=== PATIENT | female | born 1945 | race Caucasian/White ===

== ENCOUNTER 2019-12-18 16:38 | Emergency (ER) | payer OTHER ==
--- NOTE | 2019-12-18 17:25 | RAD REPORT ---
EXAM DESCRIPTION: CT - CTHCSPWOC - 12/18/2019 4:45 pm CLINICAL HISTORY: Trauma, head and neck injury. fall, head injury COMPARISON: No comparisons TECHNIQUE: Axial 5 mm thick images of the head were obtained. Axial 2 mm thick images of the cervical spine were obtained with sagittal and coronal reconstruction images generated and reviewed. All CT scans are performed using dose optimization technique as appropriate and may include automated exposure control or mA/KV adjustment according to patient size. FINDINGS: CT HEAD WITHOUT CONTRAST: No acute hemorrhage, hydrocephalus or extra-axial collection is identified.Advanced generalized brain atrophy is present with advanced periventricular and deep white matter chronic microvascular ischemi c changes.No areas of brain edema or midline shift. The paranasal sinuses and mastoids are clear.The calvarium is intact. CT CERVICAL SPINE WITHOUT CONTRAST: No fracture or subluxation.Midcervical degenerative spondylosis.No prevertebral soft tissues swelling is identified. IMPRESSION: No acute intracranial or cervical spine findings.
--- NOTE | 2019-12-18 17:57 | EDPHYS ---
Physician Documentation [facility] Name: Vaishali Chavarria Age: 74 yrs Sex: Female : 1945 Arrival Date: 12/18/2019 Time: 16:39 Bed 7 Private MD: ED Physician Bravo Melton HPI: 12/17 17:55 This 74 yrs old Female presents to ER via EMS with complaints of Fall Injury. snw 17:55 Details of fall: The patient fell from seated position, out of a chair. Onset: The snw symptoms/episode began/occurred suddenly, just prior to arrival. Associated injuries: The patient sustained injury to the head. Severity of symptoms: At their worst the symptoms were moderate. It is unknown whether or not the patient has had similar symptoms in the past. It is unknown whether or not the patient has recently seen a physician. pt without complaint. [place] sent pt to be evaluated 2nd to use of blood thinners. Historical: - Allergies: 17:30 Iodine; ls4 17:30 PENICILLINS; ls4 17:30 Shellfish Containing Products; ls4 - Immunization history: Last tetanus immunization: unknown. - Social history:: Smoking status: Patient/guardian denies using tobacco. ROS: 17:55 Constitutional: Negative for fever, chills, and weight loss, Eyes: Negative for injury, snw pain, redness, and discharge, ENT: Negative for injury, pain, and discharge, Neck: Negative for injury, pain, and swelling, Cardiovascular: Negative for chest pain, palpitations, and edema, Respiratory: Negative for shortness of breath, cough, wheezing, and pleuritic chest pain, Abdomen/GI: Negative for abdominal pain, nausea, vomiting, diarrhea, and constipation, Back: Negative for injury and pain, : Negative for injury, bleeding, discharge, and swelling, MS/Extremity: Negative for injury and deformity, Skin: Negative for injury, rash, and discoloration, Neuro: Negative for headache, weakness, numbness, tingling, and seizure, Psych: Negative for depression, anxiety, suicide ideation, homicidal ideation, and hallucinations. Exam: 17:55 Constitutional: This is a well developed, well nourished patient who is awake, alert, snw and in no acute distress. Head/Face: Normocephalic, atraumatic. Eyes: Pupils equal round and reactive to light, extra-ocular motions intact. Lids and lashes normal. Conjunctiva and sclera are non-icteric and not injected. Cornea within normal limits. Periorbital areas with no swelling, redness, or edema. ENT: Nares patent. No nasal discharge, no septal abnormalities noted. Tympanic membranes are normal and external auditory canals are clear. Oropharynx with no redness, swelling, or masses, exudates, or evidence of obstruction, uvula midline. Mucous membranes moist. Neck: Trachea midline, no thyromegaly or masses palpated, and no cervical lymphadenopathy. Supple, full range of motion without nuchal rigidity, or vertebral point tenderness. No Meningismus. Chest/axilla: Normal chest wall appearance and motion. Nontender with no deformity. No lesions are appreciated. Cardiovascular: Regular rate and rhythm with a normal S1 and S2. No gallops, murmurs, or rubs. Normal PMI, no JVD. No pulse deficits. Respiratory: Lungs have equal breath sounds bilaterally, clear to auscultation and percussion. No rales, rhonchi or wheezes noted. No increased work of breathing, no retractions or nasal flaring. Abdomen/GI: Soft, non-tender, with normal bowel sounds. No distension or tympany. No guarding or rebound. No evidence of tenderness throughout. Back: No spinal tenderness. No costovertebral tenderness. Full range of motion. Skin: Warm, dry with normal turgor. Normal color with no rashes, no lesions, and no evidence of cellulitis. MS/ Extremity: Pulses equal, no cyanosis. Neurovascular intact. Full, normal range of motion. Neuro: Awake and alert, GCS 15, oriented to person, place, time, and situation. Cranial nerves II-XII grossly intact. Motor strength 5/5 in all extremities. Sensory grossly intact. Cerebellar exam normal. Normal gait. Psych: Awake, alert, with orientation to person, place and time. Behavior, mood, and affect are within normal limits. Vital Signs: 16:46 BP 133 / 91; Pulse 76; Resp 14; Temp 98.5; Pulse Ox 99% on R/A; Weight 72.57 kg; Pain ls4 0/10; 17:40 BP 147 / 100; Pulse 71; Resp 14; Pulse Ox 99% on R/A; Pain 0/10; ls4 19:42 BP 151 / 84; Pulse 85; Resp 16; Pulse Ox 94% on R/A; rv Wilton Coma Score: 16:46 Eye Response: spontaneous(4). Verbal Response: oriented(5). Motor Response: obeys ls4 commands(6). Total: 15. Trauma Score (Adult): 16:46 Eye Response: spontaneous(1); Verbal Response: oriented(1); Motor Response: obeys ls4 commands(2); Systolic BP: > 89 mm Hg(4); Respiratory Rate: 10 to 29 per min(4); Wilton Score: 15; Trauma Score: 12 MDM: 16:40 Patient medically screened. rn 17:57 Data reviewed: vital signs, nurses notes. Data interpreted: Pulse oximetry: on room air snw is 99 %. Interpretation: normal. Counseling: I had a detailed discussion with the patient and/or guardian regarding: the historical points, exam findings, and any diagnostic results supporting the discharge/admit diagnosis, radiology results, to return to the emergency department if symptoms worsen or persist or if there are any questions or concerns that arise at home. 12/17 16:41 Order name: CT Head C Spine; Complete Time: 17:36 rn Administered Medications: No medications were administered Disposition: 12/18/19 17:54 Discharged to Home. Impression: Fall on same level, unspecified, Unspecified injury of head. - Condition is Stable. - Discharge Instructions: Head Injury, Adult, Fall Prevention in the Home. - Medication Reconciliation Form, Thank You Letter, Antibiotic Education, Prescription Opioid Use form. - Follow up: Emergency Department; When: As needed; Reason: Worsening of condition. Follow up: Private Physician; When: 2 - 3 days; Reason: Recheck today's complaints, Continuance of care, Re-evaluation by your physician. Addendum: 12/21/2019 18:59 Co-signature as Attending Physician, Bravo Melton MD. r n Signatures: Dispatcher [employer] EDMS Grace Maya, SCLEROSCOPE TESTER-C SCLEROSCOPE TESTER-Csnw Bravo Melton MD MD rn Vicente, Ronaldo, RN RN Archana Marroquin RN RN ls4 Corrections: (The following items were deleted from the chart) 12/17 19:42 17:54 12/18/2019 17:54 Discharged to Home. Impression: Fall on same level, unspecified; rv Unspecified injury of head. Condition is Stable. Forms are Medication Reconciliation Form, Thank You Letter, Antibiotic Education, Prescription Opioid Use. Follow up: Emergency Department; When: As needed; Reason: Worsening of condition. Follow up: Private Physician; When: 2 - 3 days; Reason: Recheck today's complaints, Continuance of care, Re-evaluation by your physician. snw
--- NOTE | 2019-12-18 17:57 | ER ---
Nurse's Notes [facility] Name: Vaishali Chavarria Age: 74 yrs Sex: Female : 1945 Arrival Date: 12/18/2019 Time: 16:39 Bed 7 Private MD: Diagnosis: Fall on same level, unspecified;Unspecified injury of head Presentation: 12/17 16:40 Chief complaint: EMS states: PT FROM [facility]. STAFF STATES PT FELL AND ls4 HIT THE RIGHT SIDE OF HER HEAD. STAFF STATES SHE IS ON BLOOD THINNERS. PT DENIES PAIN OR COMPLAINTS. IS AWAKE ALERT AND ORIENTED X 3. Care prior to arrival: None. Mechanism of Injury: No Mechanism of Injury. Trauma event details: Injury occurred in the [facility], Injury occurred: in an institution. Injury occurred: December 18, 2019 Injury occurred at: 16:00. 16:40 Acuity: KRISHNA 2 ls4 16:40 Method Of Arrival: EMS: [facility] ls4 16:40 Coronavirus screen: Patient denies fever greater than 100.4F, cough, shortness of ls4 breath, or difficulty breathing. Proceed with normal triage process. Ebola Screen: No symptoms or risks identified at this time. 16:40 Initial Sepsis Screen: Does the patient meet any 2 criteria? Yes Does the patient have ls4 a suspected source of infection? No. Patient's initial sepsis screen is negative. Risk Assessment: Do you want to hurt yourself or someone else? Patient reports no desire to harm self or others. 18:05 Activity prior to arrival: None. ls4 Trauma Activation: Not Applicable Physician: ED Physician; Name: ; Notified At: ; Arrived At: Physician: General Surgeon; Name: ; Notified At: ; Arrived At: Physician: Radiology; Name: ; Notified At: ; Arrived At: Physician: Respiratory; Name: ; Notified At: ; Arrived At: Physician: Lab; Name: ; Notified At: ; Arrived At: Historical: - Allergies: 17:30 Iodine; ls4 17:30 PENICILLINS; ls4 17:30 Shellfish Containing Products; ls4 - Immunization history: Last tetanus immunization: unknown. - Social history:: Smoking status: Patient/guardian denies using tobacco. Screenin:40 Nutritional screening: No deficits noted. Fall Risk Total Hudson Fall Scale indicates ls4 High Risk Score (45 or more points). Fall prevention measures have been instituted. Side Rails Up X 2 Placed Close to Nursing Station Frequent Obs/Assessments Occuring As available patient and family educated on Fall Prevention Program and Strategies. 16:46 Abuse screen: Denies threats or abuse. Denies injuries from another. Tuberculosis ls4 screening: No symptoms or risk factors identified. Primary Survey: 16:40 NO uncontrolled hemorrhage observed. A: Airway: patent. Breathing/Chest: Respiratory ls4 pattern: regular, Respiratory effort: spontaneous, unlabored, Breath sounds: clear, bilaterally. Chest inspection: symmetrical rise and fall of the chest. Circulation:. Disability Alert. Exposure/Environment: All clothing and personal items were removed. Forensic evidence collection is not deemed to be indicated at this time. Items placed in patient belonging bag. There is no evidence of uncontrolled external bleeding. No obvious injuries are noted at this time. A warming method has been applied: A warm blanket has been provided to the patient. Reassessment Airway Airway Patent Breathing/Chest Respiratory pattern Regular Respiratory effort Spontaneous Unlabored Breath sounds Clear Circulation Heart tones Present Pulses Palpable Color [place] Temperature Warm Disability Alert. Secondary Survey: 16:46 HEENT: No deficits noted. Gastrointestinal: No deficits noted. : No deficits noted. ls4 Musculoskeletal: No deficits noted. Injury Description: NO VISIBLE INJURY. Assessment: 16:40 General: Appears in no apparent distress. comfortable, Behavior is calm, cooperative. ls4 Pain: Denies pain. 17:40 Reassessment: Patient appears in no apparent distress at this time. Patient and/or ls4 family updated on plan of care and expected duration. Pain level reassessed. Patient is alert, oriented x 3, equal unlabored respirations, skin warm/dry/pink. 19:33 Reassessment: [facility] called. REPORT GIVEN TO ROSETTA. ROSETTA STATES ls4 HE WILL CALL TRANSPORT. 19:35 Reassessment: [facility] CALLED. ROSETTA STATES HE WILL CALL TRANSPORT. ls4 19:40 Reassessment: PATIENT WAS ABLE TO GET UP AND TRANSFER FROM BED TO WHEELCHAIR. rv DISCHARGED VIA WHEELCHAIR, TOOK BY [facility] PERSONNEL. Vital Signs: 16:46 BP 133 / 91; Pulse 76; Resp 14; Temp 98.5; Pulse Ox 99% on R/A; Weight 72.57 kg; Pain ls4 0/10; 17:40 BP 147 / 100; Pulse 71; Resp 14; Pulse Ox 99% on R/A; Pain 0/10; ls4 19:42 BP 151 / 84; Pulse 85; Resp 16; Pulse Ox 94% on R/A; rv Rj Coma Score: 16:46 Eye Response: spontaneous(4). Verbal Response: oriented(5). Motor Response: obeys ls4 commands(6). Total: 15. Trauma Score (Adult): 16:46 Eye Response: spontaneous(1); Verbal Response: oriented(1); Motor Response: obeys ls4 commands(2); Systolic BP: > 89 mm Hg(4); Respiratory Rate: 10 to 29 per min(4); Rj Score: 15; Trauma Score: 12 ED Course: 16:39 Patient arrived in ED. jl7 16:40 Archana Duffy, RN is Primary Nurse. ls4 16:40 rBavo Melton MD is Attending Physician. rn 16:44 Triage completed. ls4 16:46 Patient has correct armband on for positive identification. Bed in low position. Call ls4 light in reach. Side rails up X 1. 16:46 Arm band placed on. ls4 16:46 Patient maintains SpO2 saturation greater than 95% on room air. ls4 16:46 Thermoregulation: warm blanket given to patient. ls4 16:47 CT Head C Spine In Process Unspecified. EDMS 16:52 [facility]C [facility] rn 17:25 No provider procedures requiring assistance completed. Patient did not have IV access ls4 during this emergency room visit. Administered Medications: No medications were administered Intake: 16:46 PO: 0ml; Total: 0ml. ls4 Output: 16:46 Urine: 0ml; Total: 0ml. ls4 Outcome: 17:54 Discharge ordered by . snw 19:41 Discharged to home via wheelchair, WITH [facility]. rv 19:41 Condition: good 19:41 Discharge instructions given to halfway, Instructed on discharge instructions, follow up and referral plans. Demonstrated understanding of instructions, follow-up care. 19:42 Patient left the ED. rv Signatures: Dispatcher [employer] EDND Grace Maya FNP-C GRADUATE ASSISTANT ATHLETIC TRAINER-Csnw Bravo Melton MD MD rn Leal, Jahala, RN RN jl7 Clarence Romero, RN RN rv Clive, Archana, RN RN ls4
[2019-12-18 19:57] VITALS: TEMP 98.5
[2019-12-18 20:00] VITALS: BP 151/84; O2SAT 94
== END 2019-12-18 19:42 | disposition home or self-care (01) ==
LOC: ER 16:38
DX: S09.90XA Unspecified injury of head, initial encounter (principal); W07.XXXA Fall from chair, initial encounter; Y93.9 Activity, unspecified; Y92.9 Unspecified place or not applicable; Z88.0 Allergy status to penicillin; Z91.013 Allergy to seafood; Z91.048 Other nonmedicinal substance allergy status
CPT/HCPCS: 70450; 72125; 99284

== ENCOUNTER 2021-05-22 05:53 | Inpatient (IN) | payer OTHER ==
--- OUTSIDE RECORDS SUMMARY | 2021-05-22 05:57 | XMS REPORT | Continuity of Care Document ---
:1945 Author Organization [facility] t Address [address] [place] [address] Care Team Providers Name Role Phone Unavailable Unavailable Unavailable Payers Payer Name Policy Type Policy Number Effective Date Expiration Date S ource Problems This patient has no known problems. Allergies, Adverse Reactions, Alerts Allergy Allergy Status Severity Reaction(s) Onset Inactive Treating Comm ents Source Name Type Date Date Clinician No Known DA Active U [facility] Allergie 01-01 Clear s 00:00: Galindo 00 [facility] Medications This patient has no known medications. Procedures This patient has no known procedures. Results Test Description Test Time Test Comments Results Result Comments Source TROPONIN-I 2019-08-04 16:48:00 Test Item Value Reference Range Interpretation Comme nts TROPONIN-I (test code = TROPI) <0.02 NG/ML 0.00-0.06 N REFERENCE RANGE TROPONIN I HEALTHY INDIVID UALS: <0.06 ng/mL R/O ISCHE ANATOLY: 0.07 - 0.60 ng/mL CUT- OFF RANGE FOR AMI: 0.60 - 1. 5 ng/mL [id number] 13:39:00 Test Item Value Reference Range Interpretation Comments TROPONIN-I (test <0.02 NG/ML 0.00-0.06 N REFERENCE R GISELA code = TROPI) TROPONIN I HEA LTHY INDIVIDUALS: < 0.06 ng/mL R/O ISCHE ANATOLY: 0.07 - 0.60 ng/ mL CUT-OFF RANGE F OR AMI: 0.60 - 1.5 ng/m L URINALYSIS [id number] 10:00:00 Test Item Value Reference Range Interpretation Comments UA COLOR (test code = LT YELLOW COLU) UA APPEARANCE (test code CLEAR = APPU) UA GLUCOSE DIPSTICK (test NORMAL mg/dl NORMAL code = DGLUU) UA BILIRUBIN DIPSTICK NEGATIVE mg/dL NEGATIVE (test code = BILU) UA KETONE DIPSTICK (test NEGATIVE mg/dl NEGATIVE code = KETU) UA SPECIFIC GRAVITY (test 1.010 1.000-1.030 code = SGU) UA BLOOD DIPSTICK (test 25 Carmelo/micL Carmelo/micL NEGATIVE A code = CASSI) UA PH DIPSTICK (test code 6.0 5.0-9.0 = BELLA) UA PROTEIN DIPSTICK (test NEGATIVE mg/dl NEGATIVE code = PROU) UA UROBILINIOGEN DIPSTICK NORMAL mg/dl NORMAL (test code = URO) UA NITRITE DIPSTICK (test POSITIVE NEGATIVE A code = LATASHA) UA LEUKOCYTE ESTERASE NEGATIVE Jose/micL NEGATIVE DIPSTICK (test code = LEUU) UA WBC (test code = WBCU) WBC/HPF NONE UA RBC (test code = RBCU) RBC/HPF 0-3 UA EPITHELIAL CELLS (test EPI/HPF 0-3 code = EPIU) UA BACTERIA (test code = NONE BACU) Specimen comments: Clean CatchURINALYSIS [id number] 10:00:00 Test Item Value Reference Range Interpretation Comments UA COLOR (test code = LT YELLOW COLU) UA APPEARANCE (test code CLEAR = APPU) UA GLUCOSE DIPSTICK (test NORMAL mg/dl NORMAL code = DGLUU) UA BILIRUBIN DIPSTICK NEGATIVE mg/dL NEGATIVE (test code = BILU) UA KETONE DIPSTICK (test NEGATIVE mg/dl NEGATIVE code = KETU) UA SPECIFIC GRAVITY (test 1.010 1.000-1.030 code = SGU) UA BLOOD DIPSTICK (test 25 Carmelo/micL Carmelo/micL NEGATIVE A code = CASSI) UA PH DIPSTICK (test code 6.0 5.0-9.0 = BELLA) UA PROTEIN DIPSTICK (test NEGATIVE mg/dl NEGATIVE code = PROU) UA UROBILINIOGEN DIPSTICK NORMAL mg/dl NORMAL (test code = URO) UA NITRITE DIPSTICK (test POSITIVE NEGATIVE A code = LATASHA) UA LEUKOCYTE ESTERASE NEGATIVE Jose/micL NEGATIVE DIPSTICK (test code = LEUU) UA WBC (test code = WBCU) 0-3 WBC/HPF NONE UA RBC (test code = RBCU) 0-2 RBC/HPF 0-3 UA EPITHELIAL CELLS (test 0-3 EPI/HPF 0-3 code = EPIU) UA BACTERIA (test code = TNTC NONE A BACU) Specimen comments: Clean CatchPROTHROMBIN [id number] 09:43:00 Test Item Value Reference Range Interpretation Comments PROTHROMBIN TIME 10.9 SECONDS 9.9-12.8 N PATIENT (test code = PTP) INTERNATIONAL NORMAL 0.9 0.89-1.14 N THE INR IS TO BE USED RATIO (test code = ONLY FOR MONITORING INR) ORAL ANTICOAGULANTTH ERAPY. THE FOLLOWING A RE SUGGESTED RANGE S FROM [facility] LEGE OF CHEST PHYSICIANS:ESTHER CATION INR VALUEPROPHYLAXI S OF VENOUS THROMBOS IS (ORTHOPEDIC MERLE KELLEY) 2.0 - 3.0PROP HYLAXIS OF VENOUS THROM BOSIS (OTHER THAN HIG H-RISK SURGERY) 2.0 - 3.0TRE ATMENT OF DEEP VEIN THROMBOSIS OR PULMONARY EMBOL ISM 2.0 - 3.0PREV ENTION OF SYSTEMIC EMB OLISM TISSUE HEART VA LVES 2.0 - 3.0 AC POARCH MYOCARDIAL INFA RCTION (TO PREVENT SYSTEMIC EMBOLI SM) 2.0 - 3.0 ACUTE MYOCARDIA L INFARCTION (TO PREVENT RECURRE NT INFARCT) 2.5 - 3.0 VALV ULAR HEART DISEASE 2.0 - 3.0 ATRIAL FIBRILATION 2.0 - 3.0BILEAFLET MECHANICAL VALV E IN AORTIC POSITION 2.0 - 3.0MECHAN ICAL PROSTHETIC VALV ES (HIGH RISK) 2.5 - 3.5PRESEN CE OF LUPUS ANTICOAGU LANT OR ANTIPHOSPHOLIP ID ANTIBODIES 2.5 - 3 .5 Specimen comments: .Is patient on anticoagulants? NTHROMBOPLASTIN TIME PARTIAL 2019-08-04 09:43:00 Test Item Value Reference Range Interpretation Comments THROMBOPLASTIN TIME 44.50 SECONDS 25.86-36.07 [facility] PARTIAL (test code = Therape utic Range - PTT) APTT of 55.8-85 .4 secondscorrelat es with plasma heparin concentration o f 0.2-0.4 u/mL Ne w range effective - Specimen comments: .Is patient on anticoagulants? NBASIC METABOLIC PANEL 2019-08-04 09:32:00 Test Item Value Reference Range Interpretation Comments SODIUM (test code = NA) 138 mmol/l 134.0-147.0 N POTASSIUM (test code = K) 4.0 mmol/L 3.6-5.2 N CHLORIDE (test code = CL) 105 mmol/l 98.0-107.0 N CARBON DIOXIDE (test code = CO2) 26.2 mmol/l 21.0-33.0 N ANION GAP (test code = GAP) 10.8 0-20 N GLUCOSE (test code = GLU) 87 mg/dl 70.0-110.0 N BLOOD UREA NITROGEN (test code = 16 mg/dl 7.0-18.0 N BUN) CREATININE (test code = CREAT) 0.60 mg/dL 0.60-1.30 N GFR NON BLACK (test code = 104 mL/min 70-80 H GFRNONBLACK) GFR BLACK (test code = GFRBLACK) 126 mL/min 85-97 H CALCIUM (test code = CA) 9.6 mg/dl 8.0-10.5 N Specimen comments: .[id number] 09:32:00 Test Item Value Reference Range Interpretation Comments TROPONIN-I (test <0.02 NG/ML 0.00-0.06 N REFERENCE R GISELA code = TROPI) TROPONIN I HEA LTHY INDIVIDUALS: < 0.06 ng/mL R/O ISCHE ANATOLY: 0.07 - 0.60 ng/ mL CUT-OFF RANGE F OR AMI: 0.60 - 1.5 ng/m L Specimen comments: .CBC W/AUTO [id number] 09:08:00 Test Item Value Reference Range Interpretation Comments WHITE BLOOD CELL (test code = 7.8 K/mm3 4.5-11.0 N WBC) RED BLOOD CELL (test code = 5.13 M/mm3 3.80-5.20 N RBC) HEMOGLOBIN (test code = HGB) 14.8 gm/dL 12.0-16.0 N HEMATOCRIT (test code = HCT) 46.6 % 36.0-48.0 N MEAN CELL VOLUME (test code = 90.8 UM3 82.0-99.0 N MCV) MEAN CELL HGB (test code = MCH) 28.8 UUG 25.5-32.5 N MEAN CELL HGB CONCETRATION 31.8 gm/dL 29.0-35.5 N (test code = MCHC) RED CELL DISTRIBUTION WIDTH 12.9 % 11.5-15.0 N (test code = RDW) RED CELL DISTRIBUTION WIDTH SD 42.9 fL 34.8-50.2 N (test code = RDW-SD) PLATELET COUNT (test code = 255 K/mm3 150-400 N PLT) MEAN PLATELET VOLUME (test code 10.6 fl 7.4-10.4 H = MPV) NEUTROPHIL % (test code = NT%) 77.3 % 49.0-76.0 H IMMATURE GRANULOCYTE % (test 0.3 % 0.0-0.4 N code = IG%) LYMPHOCYTE % (test code = LY%) 10.9 % 23.0-38.0 L MONOCYTE % (test code = MO%) 7.8 % 1.0-10.0 N EOSINOPHIL % (test code = EO%) 3.3 % 1.0-5.0 N BASOPHIL % (test code = BA%) 0.4 % 0.0-1.0 N NEUTROPHIL # (test code = NT#) 6.1 K/mm3 2.4-6.3 N IMMATURE GRANULOCYTE # (test 0.02 x10 3/uL 0.00-0.07 N code = IG#) LYMPHOCYTE # (test code = LY#) 0.9 K/mm3 1.2-4.0 L MONOCYTE # (test code = MO#) 0.6 K/mm3 0.0-0.6 N EOSINOPHIL # (test code = EO#) 0.3 K/MM3 0.0-0.7 N BASOPHIL # (test code = BA#) 0.0 K/mm3 0.0-0.2 N - CT C-SPINE W/O [id number] 08:20:00 FAX: Yanni Olmstead MD [phone] [place]: St: REG FAX: Elyssa Retana MD [phone] Name: YANI SPICER [facility] : 1945 Age/S: 73/F [address] [facility] [address] Unit: [id number] Loc: E.EXP [place], [place]: [place] [address] Acct: [id number] Dis Date: Status: REG ER PHONE #: [phone] Exam Date: 08/04/2019 0804 FAX #: [phone] Reason: Neck Pain EXAMS: CPT CODE: [id number] CT C-SPINE W/O CONT 08006 EXAM: CT CERVICAL SPINE WITHOUT CONTRAST LOCATION: C3 HISTORY: Neck Pain TECHNIQUE: Axial tomograms through the cervical spine were obtained without intravenous contrast. Sagittal and coronal reformatted images are provided. This exam was performed according [facility] departmental dose-optimization program, which includes automated exposure control, adjustment of the mA and/or kV according to patient size and/or use of iterative reconstruction technique. COMPARISON: None available time of interpretation. FINDINGS: Cervical alignment is maintained. No acute fracture or dislocation. The prevertebral soft tissues are within normal limits. The visualized soft tissues of the neck show no significant abnormalities. IMPRESSION: No acute osseous findings. at 0820 Reported and signed by: Thien Taylor M.D. CC: Yanni Levy MD; Elyssa Retana MD Technologist: ANGELLA PARRA Trnscrd Dt/Tm: 08/04/2019 (0820) [email or web address] Orig Print D/T: S: 08/04/2019 (0823 PAGE 1 Signed Report- CT HEAD/BRAIN W/O [id number] 08:18:00 FAX: Yanni Olmstead MD [phone] [place]: St: REG FAX: Elyssa Retana MD [phone] Name: YANI SPICER [facility] : 1945 Age/S: 73/F [address] [facility] [address] Unit: [id number] Loc: E.EXP [place], [place]: [place] [address] Acct: [id number] Dis Date: Status: REG ER PHONE #: [phone] Exam Date: 08/04/2019 0804 FAX #: [phone] Reason: Headache EXAMS: CPT CODE: [id number] CT HEAD/BRAIN W/O CONT 38831 EXAM: - CT HEAD/BRAIN W/O CONT LOCATION: C3 HISTORY: 73 years- year old Female with Headache TECHNIQUE: Computerized tomography images from the skull base to the vertex were obtained. Coronal and sagittal reformatted images are provided. This exam was performed according to our departmental dose-optimization program, which includes automated exposure control, adjustment of the mA and/or kV according to patient size and/or use of iterative reconstruction technique COMPARISON: None FINDINGS: Brain: The brain parenchymal architecture is unremarkable. There is moderate diffuse cer ebral atrophy and periventricular/subcortical white matter hypodensities that likely representsequelae of chronic microvascular ischemia. There is no evidence of an acute territorialinfarct. Hemorrhage: There is no CT evidence of acute intracranial hemorrhage. Mass/edema: There is no CT evidence of mass effect, midline shift, or parenchymal edema. Ventricles: There is no evidence of hydrocephalus. Bones: There is no evidence of acute displaced calvarial fracture. Sinuses: The visualized portions of the paranasal sinuses and mastoid air cells are free of significant opacification. Other/Soft Tissues: Unremarkable. IMPRESSION: 1. No CT evidence of acute intracranial abnormality. PAGE 1 Signed Report (CONTINUED) FAX: Yanni Olmstead MD [phone] [place]: St: REG FAX: Elyssa Retana MD [phone] Name: YANI SPICER [facility] : 1945ge/S: 73/F [address] [employer] Unit: [id number] Loc: E.EXP [place], [place]: [place] [address] Acct: [id number] Dis Date: Status: REG ER PHONE #: [phone] Exam Date: 08/04/2019 0804 FAX #: [phone] Reason:Headache EXAMS: CPT CODE: [id number] CT HEAD/BRAIN W/O CONT 77112 <Continued> at 0818 Reported and signed by: Thien Taylor M.D. CC: Yanni Levy MD; Elyssa Retana MD Technologist: ANGELLA PARRA Trnscrd Dt/Tm: 08/04/2019 (0818) [email or web address] Orig Print D/T: S: 08/04/2019 (0821 PAGE 2 Signed Report- XR CHEST 1 [id number] 08:06:00 FAX: Yanni Olmstead MD [phone] [place]: St: REG FAX: Guanaco Retana [phone] Name: YANI SPICER [facility] : 1945 Age/S: 73/[address] Unit #: [id number] Loc: E.EXP [place], [place]: [place] [address] Acct: [id number] Dis Date: Status: REG ER PHONE #: [phone] Exam Date: 08/04/2019803 FAX #: [phone] Reason: Chest Pain EXAMS: CPT CODE: [id number] XR CHEST 1 V 79659 EXAM: - XR CHEST 1 V LOCATION: C3 HISTORY: Chest Pain COMPARISON: Noneavailable time of interpretation. FINDINGS: Single view of the chest. No indwelling lines or tubes. No pneumothorax. The lungs are clear without significant effusions. The mediastinal contours are unremarkable/unchanged. No acute osseous findings are present. Old unhealed right rib fractures versus sequela of prior thoracostomy noted. IMPRESSION: No acute cardiopulmonary abnormality. at 0806 Reported and signed by: Thien Taylor M.D. CC: Yanni Levy MD; Elyssa Retana MD Technologist: NGOC ALEMAN; RAVIN HOLLAND Trnscrd Date/Time/By: 08/04/2019 (0806) : By: [email or web address] PAGE 1 Signed Report FAX: Yanni Olmstead MD [phone] [place]: St: REG FAX: Elyssa Retana MD [phone] Name: YANI SPICER [facility] : 1945 Age/S: 73/F [address] [facility] Unit #: [id number] Loc: E.EXP [place], [place]: [place] [address] Acct: [id number] Dis Date: Status: REG ER PHONE #: [phone] Exam Date: 08/04/2019 0804 FAX #: [phone] Reason: Chest Pain EXAMS: CPT CODE: [id number] XR CHEST 1 V 17564 <Continued> Orig Print D/T: S: 08/04/2019 (0810) PAGE 2 Signed Report- XR PELVIS 1/2 [id number] 08:05:00 FAX: Yanni Olmstead MD [phone] [place]: St: REG FAX: Guanaco Retana [phone] Name: YANI SPICER [facility] : 1945 Age/S: 73/F [address] [facility] Unit #: [id number] Loc: E.EXP [place], [place]: [place] [address] Acct: [id number] Dis Date: Status: REG ER PHONE #: [phone] Exam Date: 08/04/2019 0804 FAX #: [phone] Reason: Pelvic Pain EXAMS: CPT CODE: [id number] XR PELVIS 1/2 VIEWS 69978 EXAM: - XR PELVIS 1/2 VIEWS HISTORY: Pelvic Pain COMPARISON: None available time of interpretation. FINDINGS: Single frontal view of the pelvis. No acute fracture is identified. Gamma nail identified in the right femur. The sacrum is obscured by overlying bowel. The hip joint spaces are preserved. No incidental soft tissue findings. IMPRESSION: No acute findings. at 0805 Reported and signed by: Thien Taylor M.D. CC: Yanni Levy MD; Elyssa Retana MD Technologist: NGOC HOLLAND Trnscrd Date/Time/By: 08/04/2019 (0805) : By: [email or web address] PAGE 1 Signed Report FAX: Yanni Olmstead MD [phone] [place]: St: REG FAX: Elyssa Retana MD [phone] Name: YANI SPICER [facility] : 1945 Age/S: 73/F [address] [facility] Unit #: [id number] Loc: E.EXP [place], [place]: [place] [address] Acct: [id number] Dis Date: Status: REG ER PHONE #: [phone] Exam Date: 08/04/2019 0804 FAX #: [phone] Reason: Pelvic Pain EXAMS: CPT CODE: [id number] XR PELVIS 1/2 VIEWS 64743 <Continued> Orig Print D/T: S: 08/04/2019 (0808) PAGE 2 Signed ReportBASIC METABOLIC [id number] 10:13:00 Test Item Value Reference Range Interpretation Comments SODIUM (test code = NA) 142 mmol/l 134.0-147.0 N POTASSIUM (test code = K) 3.3 mmol/L 3.6-5.2 L CHLORIDE (test code = CL) 108 mmol/l 98.0-107.0 H CARBON DIOXIDE (test code = CO2) 24.8 mmol/l 21.0-33.0 N ANION GAP (test code = GAP) 12.5 0-20 N GLUCOSE (test code = GLU) 177 mg/dl 70.0-110.0 H BLOOD UREA NITROGEN (test code = 23 mg/dl 7.0-18.0 H BUN) CREATININE (test code = CREAT) 0.70 mg/dL 0.60-1.30 N GFR NON BLACK (test code = 87 mL/min 70-80 H GFRNONBLACK) GFR BLACK (test code = GFRBLACK) 105 mL/min 85-97 H CALCIUM (test code = CA) 8.3 mg/dl 8.0-10.5 N Specimen comments: .HEPATIC FUNCTION PANEL [id number] 10:13:00 Test Item Value Reference Range Interpretation Comments TOTAL PROTEIN (test code = PROT) 6.6 gm/dL 6.4-8.2 N ALBUMIN (test code = ALB) 3.0 gm/dl 3.2-4.7 L BILIRUBIN TOTAL (test code = BILT) 0.4 mg/dl 0.0-1.0 N BILIRUBIN DIRECT (test code = 0.1 mg/dl 0.0-0.3 N BILD) SGOT/AST (test code = AST) 26 Units/L 15.0-37.0 N SGPT/ALT (test code = ALT) 43 Units/L 12.0-78.0 N ALKALINE PHOSPHATASE TOTAL (test 98 Units/L 50.0-136.0 N code = ALKP) Specimen comments: .B-TYPE NATRIURETIC [id number] 10:13:00 Test Item Value Reference Range Interpretation Comments B-TYPE NATRIURETIC PEPTIDE (test 60.0 PG/ML 5-100 N code = BNP) Specimen comments: .[id number] 10:13:00 Test Item Value Reference Range Interpretation Comments TROPONIN-I (test <0.02 NG/ML 0.00-0.06 N REFERENCE R GISELA code = TROPI) TROPONIN I HEA LTHY INDIVIDUALS: < 0.06 ng/mL R/O ISCHE ANATOLY: 0.07 - 0.60 ng/ mL CUT-OFF RANGE F OR AMI: 0.60 - 1.5 ng/m L Specimen comments: .BASIC METABOLIC [id number] 10:03:00 Test Item Value Reference Range Interpretation Comments SODIUM (test code = NA) 142 mmol/l 134.0-147.0 N POTASSIUM (test code = K) 3.3 mmol/L 3.6-5.2 L CHLORIDE (test code = CL) 108 mmol/l 98.0-107.0 H CARBON DIOXIDE (test code = CO2) 24.8 mmol/l 21.0-33.0 N ANION GAP (test code = GAP) 12.5 0-20 N GLUCOSE (test code = GLU) 177 mg/dl 70.0-110.0 H BLOOD UREA NITROGEN (test code = 23 mg/dl 7.0-18.0 H BUN) CREATININE (test code = CREAT) 0.70 mg/dL 0.60-1.30 N GFR NON BLACK (test code = 87 mL/min 70-80 H GFRNONBLACK) GFR BLACK (test code = GFRBLACK) 105 mL/min 85-97 H CALCIUM (test code = CA) 8.3 mg/dl 8.0-10.5 N Specimen comments: .HEPATIC FUNCTION PANEL [id number] 10:03:00 Test Item Value Reference Range Interpretation Comments TOTAL PROTEIN (test code = PROT) 6.6 gm/dL 6.4-8.2 N ALBUMIN (test code = ALB) 3.0 gm/dl 3.2-4.7 L BILIRUBIN TOTAL (test code = BILT) 0.4 mg/dl 0.0-1.0 N BILIRUBIN DIRECT (test code = 0.1 mg/dl 0.0-0.3 N BILD) SGOT/AST (test code = AST) 26 Units/L 15.0-37.0 N SGPT/ALT (test code = ALT) 43 Units/L 12.0-78.0 N ALKALINE PHOSPHATASE TOTAL (test 98 Units/L 50.0-136.0 N code = ALKP) Specimen comments: .B-TYPE NATRIURETIC [id number] 10:03:00 Test Item Value Reference Range Interpretation Comments B-TYPE NATRIURETIC PEPTIDE (test code PG/ML 5-100 = BNP) Specimen comments: .[id number] 10:03:00 Test Item Value Reference Range Interpretation Comments TROPONIN-I (test <0.02 NG/ML 0.00-0.06 N REFERENCE R GISELA code = TROPI) TROPONIN I HEA LTHY INDIVIDUALS: < 0.06 ng/mL R/O ISCHE ANATOLY: 0.07 - 0.60 ng/ mL CUT-OFF RANGE F OR AMI: 0.60 - 1.5 ng/m L Specimen comments: .PROTHROMBIN [id number] 09:54:00 Test Item Value Reference Range Interpretation Comments PROTHROMBIN TIME 12.1 SECONDS 9.9-12.8 N PATIENT (test code = PTP) INTERNATIONAL NORMAL 1.0 0.89-1.14 N THE INR IS TO BE USED RATIO (test code = ONLY FOR MONITORING INR) ORAL ANTICOAGULANTTH ERAPY. THE FOLLOWING A RE SUGGESTED RANGE S FROM THEAMERICAN COL LEGE OF CHEST PHYSICIANS:ESTHER CATION INR VALUEPROPHYLAXI S OF VENOUS THROMBOS IS (ORTHOPEDIC MERLE KELLEY) 2.0 - 3.0PROP HYLAXIS OF VENOUS THROM BOSIS (OTHER THAN HIG H-RISK SURGERY) 2.0 - 3.0TRE ATMENT OF DEEP VEIN THROMBOSIS OR PULMONARY EMBOL ISM 2.0 - 3.0PREV ENTION OF SYSTEMIC EMB OLISM TISSUE HEART VA LVES 2.0 - 3.0 AC POARCH MYOCARDIAL INFA RCTION (TO PREVENT SYSTEMIC EMBOLI SM) 2.0 - 3.0 ACUTE MYOCARDIA L INFARCTION (TO PREVENT RECURRE NT INFARCT) 2.5 - 3.0 VALV ULAR HEART DISEASE 2.0 - 3.0 ATRIAL FIBRILATION 2.0 - 3.0BILEAFLET MECHANICAL VALV E IN AORTIC POSITION 2.0 - 3.0MECHAN ICAL PROSTHETIC VALV ES (HIGH RISK) 2.5 - 3.5PRESEN CE OF LUPUS ANTICOAGU LANT OR ANTIPHOSPHOLIP ID ANTIBODIES 2.5 - 3 .5 Specimen comments: .Is patient on anticoagulants? NTHROMBOPLASTIN TIME PARTIAL 2019-07-05 09:54:00 Test Item Value Reference Range Interpretation Comments THROMBOPLASTIN TIME 40.70 SECONDS 25.86-36.07 [facility] PARTIAL (test code = Therape utic Range - PTT) APTT of 55.8-85 .4 secondscorrelat es with plasma heparin concentration o f 0.2-0.4 u/mL Ne w range effective - Specimen comments: .Is patient on anticoagulants? NBASIC METABOLIC PANEL 2019-07-05 09:54:00 Test Item Value Reference Range Interpretation Comments SODIUM (test code = NA) 142 mmol/l 134.0-147.0 N POTASSIUM (test code = K) 3.3 mmol/L 3.6-5.2 L CHLORIDE (test code = CL) 108 mmol/l 98.0-107.0 H CARBON DIOXIDE (test code = CO2) 24.8 mmol/l 21.0-33.0 N ANION GAP (test code = GAP) 12.5 0-20 N GLUCOSE (test code = GLU) mg/dl 70.0-110.0 BLOOD UREA NITROGEN (test code = mg/dl 7.0-18.0 BUN) CREATININE (test code = CREAT) mg/dL 0.60-1.30 GFR NON BLACK (test code = mL/min 70-80 GFRNONBLACK) GFR BLACK (test code = GFRBLACK) mL/min 85-97 CALCIUM (test code = CA) mg/dl 8.0-10.5 Specimen comments: .HEPATIC FUNCTION PANEL [id number] 09:54:00 Test Item Value Reference Range Interpretation Comments TOTAL PROTEIN (test code = PROT) gm/dL 6.4-8.2 ALBUMIN (test code = ALB) gm/dl 3.2-4.7 BILIRUBIN TOTAL (test code = BILT) mg/dl 0.0-1.0 BILIRUBIN DIRECT (test code = BILD) mg/dl 0.0-0.3 SGOT/AST (test code = AST) Units/L 15.0-37.0 SGPT/ALT (test code = ALT) Units/L 12.0-78.0 ALKALINE PHOSPHATASE TOTAL (test Units/L 50.0-136.0 code = ALKP) Specimen comments: .B-TYPE NATRIURETIC [id number] 09:54:00 Test Item Value Reference Range Interpretation Comments B-TYPE NATRIURETIC PEPTIDE (test code PG/ML 5-100 = BNP) Specimen comments: .[id number] 09:54:00 Test Item Value Reference Range Interpretation Comments TROPONIN-I (test code = TROPI) NG/ML 0.00-0.06 Specimen comments: .- XR CHEST 1 [id number] 09:54:00 FAX: Yanni Olmstead MD [phone] [place]: St: [facility] FAX: Yomaira Aleman MD [phone] Name: YANI SPICER [facility] : 1945 Age/S: 73/F [address] [facility] Unit #: [id number] [address] Phys: [place] [address] Acct: [id number] Dis Date: Status: REG ER PHONE #: [phone] Exam Date: 07/05/2019 0949 FAX #: [phone] Reason: uncontrolled hypertension EXAMS: CPT CODE: [id number] XR CHEST 1 V 81049 Chest Radiograph History: uncontrolled hypertension Comparison: April 01, 2018 Location: R16 A single frontal view of the chest is submitted. Theheart appears unchanged in size. Pulmonary vasculature is unremarkable. The visualized lung luna appear to be free of disease. The bones appear unchanged. IMPRESSION: There is no radiographic evidence of acute cardiopulmonary disease. at 0949 Reported and signed by: Andre Parker M.D. CC: Yanni Monzon ra, MD; Yomaira Aleman MD Technologist: KRYSTEN FISH TrnscrdDate/Time/By: 07/05/2019 (4859) : By: DellPMT PAGE 1 Signed Report FAX: Yanni Olmstead MD [phone] [place]: St: REG FAX: Yomaira Aleman MD [phone] Name: YANI SPICER [facility] : 1945 Age/S: 73/F [address] [facility] Unit #: [id number] Loc: E.ERS2 [place], [place] Phys: [place] [address] Acct: [id number] Dis Date: Status: REG ER PHONE #: [phone] Exam Date: 07/05/2019 0949 FAX #:[phone] Reason: uncontrolled hypertension EXAMS: CPT CODE: [id number] XR CHEST 1 V 79079 <Continued> Orig Print D/T: S: 07/05/2019 (0957) PAGE 2 Signed [facility]HA[facility] W/AUTO [id number] 09:47:00 Test Item Value Reference Range Interpretation Comments WHITE BLOOD CELL (test code = 6.4 K/mm3 4.5-11.0 N WBC) RED BLOOD CELL (test code = 4.81 M/mm3 3.80-5.20 N RBC) HEMOGLOBIN (test code = HGB) 13.9 gm/dL 12.0-16.0 N HEMATOCRIT (test code = HCT) 43.9 % 36.0-48.0 N MEAN CELL VOLUME (test code = 91.3 UM3 82.0-99.0 N MCV) MEAN CELL HGB (test code = MCH) 28.9 UUG 25.5-32.5 N MEAN CELL HGB CONCETRATION 31.7 gm/dL 29.0-35.5 N (test code = MCHC) RED CELL DISTRIBUTION WIDTH 13.4 % 11.5-15.0 N (test code = RDW) RED CELL DISTRIBUTION WIDTH SD 45.1 fL 34.8-50.2 N (test code = RDW-SD) PLATELET COUNT (test code = 229 K/mm3 150-400 N PLT) MEAN PLATELET VOLUME (test code 11.5 fl 7.4-10.4 H = MPV) NEUTROPHIL % (test code = NT%) 75.3 % 49.0-76.0 N IMMATURE GRANULOCYTE % (test 0.5 % 0.0-0.4 H code = IG%) LYMPHOCYTE % (test code = LY%) 15.9 % 23.0-38.0 L MONOCYTE % (test code = MO%) 5.6 % 1.0-10.0 N EOSINOPHIL % (test code = EO%) 2.2 % 1.0-5.0 N BASOPHIL % (test code = BA%) 0.5 % 0.0-1.0 N NEUTROPHIL # (test code = NT#) 4.8 K/mm3 2.4-6.3 N IMMATURE GRANULOCYTE # (test 0.03 x10 3/uL 0.00-0.07 N code = IG#) LYMPHOCYTE # (test code = LY#) 1.0 K/mm3 1.2-4.0 L MONOCYTE # (test code = MO#) 0.4 K/mm3 0.0-0.6 N EOSINOPHIL # (test code = EO#) 0.1 K/MM3 0.0-0.7 N BASOPHIL # (test code = BA#) 0.0 K/mm3 0.0-0.2 N
[2021-05-22 06:38] LABS: Absolute Lymphocytes (CBC) 0.8 K/uL (0.7-4.9); Basophils % 0.8 % (0-1.3); Hematocrit 42.8 % (36.0-45.0); MPV 8.2 fL (7.6-11.3); RBC Red Blood Cell Count 4.88 M/uL (3.86-4.86)
[2021-05-22 06:53] LABS: Protime INR 1.02
[2021-05-22 07:22] LABS: ALT/SGPT 21 U/L (12-78); Albumin 3.1 g/dL (3.4-5.0); Alkaline Phosphatase 85 U/L (45-117); BUN Blood Urea Nitrogen 20 mg/dL (7-18); Bicarbonate 29 mmol/L (21-32); Bilirubin Direct 0.1 mg/dL (0-0.2); Bilirubin Total 0.4 mg/dL (0.2-1.0); C-Reactive Protein 8.67 mg/L (<3.00); Ferritin 207.4 ng/mL (8-388); Glucose Level 102 mg/dL (74-106); Lipase 34 U/L (73-393); Protein, Total 7.5 g/dL (6.4-8.2); Sodium Level 144 mmol/L (136-145); Troponin (Emerg Dept Use Only) < 0.02 ng/mL (0.0-0.045)
[2021-05-22 07:39] LABS: AST/SGOT 17 U/L (15-37)
--- NOTE | 2021-05-22 08:47 | ER ---
Nurse's Notes [facility] Name: Vaishali Chavarria Age: 75 yrs Sex: Female : 1945 Arrival Date: 05/22/2021 Time: 06:01 Bed 23 Private MD: Diagnosis: Coronavirus infection, unspecified;Hypoxia Presentation: 05/22 06:01 Coronavirus screen: Client reports previous positive COVID test result. Date of jb4 collection: May 13, 2021. Ebola Screen: No symptoms or risks identified at this time. Initial Sepsis Screen: Does the patient meet any 2 criteria? No. Patient's initial sepsis screen is negative. Does the patient have a suspected source of infection? No. Patient's initial sepsis screen is negative. Risk Assessment: Do you want to hurt yourself or someone else? Patient reports no desire to harm self or others. Onset of symptoms was May 22, 2021. Transition of care: patient was not received from another setting of care. 06:01 Method Of Arrival: EMS: [facility] 06:01 Acuity: KRISHNA 3 jb4 Triage Assessment: 06:31 General: Appears in no apparent distress. Behavior is Non-verbal, but responds to lh3 painful stimuli.. Pain: Unable to use pain scale. non verbal. Historical: - Allergies: 06:06 Iodine; jb4 06:06 PENICILLINS; jb4 06:06 Shellfish Containing Products; jb4 - Home Meds: 06:06 amlodipine 10 mg tab 1 tab once daily [Active]; aspirin 81 mg Oral cpDR 81 mg daily jb4 [Active]; gabapentin 100 mg oral cap 1 cap twice a day [Active]; ipratropium-albuterol 0.5 mg-3 mg(2.5 mg base)/3 mL Inhl nebu Q4hr PRN [Active]; lisinopril 20 mg Oral tab 2 tabs once daily [Active]; loratadine 10 mg oral tab 1 tab once daily [Active]; polyethylene glycol 3350 17 gram oral pwpk 1 packet once daily [Active]; Senna with Docusate Sodium 8.6-50 mg oral tab 2 tabs 2 times per day [Active]; simvastatin 10 mg Oral tab 1 tab once daily [Active]; tramadol 50 mg Oral tab 1 tab three times a day [Active]; Zofran 4 mg Oral tab 1 tab 4 times per day [Active]; - PMHx: 06:06 CVA; Pneumonia; Hyperlipidemia; Dysphagia; Hemiplegia; Hypertensive disorder; jb4 Polyneuropathy; - Immunization history:: Adult Immunizations up to date, Client reports receiving the 2nd dose of the Covid vaccine, Date received: October 28, 2020 Client reports receiving the 1st dose of the Covid vaccine, October 07, 2020. - Social history:: Smoking status: Patient/guardian denies using tobacco. Screenin:33 Abuse screen: Denies threats or abuse. Nutritional screening: No deficits noted. lh3 Tuberculosis screening: No symptoms or risk factors identified. Fall Risk Secondary diagnosis (15 points) IV access (20 points). Assessment: 06:33 General: Appears in no apparent distress. Behavior is calm, NON-VERBAL RESPONDS TO lh3 PAINFUL STIMULI. 06:35 Respiratory: Airway is patent the patient has moderate shortness of breath. lh3 07:12 Reassessment: Report received by Mimi ADORNO. Pt resting with eyes closed and continued ch5 on monitor. No new orders. Pt not in [employer]. 07:30 Reassessment: Xray to bedside. ch5 Vital Signs: 06:01 BP 175 / 93; Pulse 55; Resp 18; Temp 97.5(TE); Pulse Ox 98% on 3 lpm NC; jb4 06:31 BP 165 / 96; Pulse 54; Resp 18; Pulse Ox 99% on 3 lpm NC; lh3 06:58 Pulse Ox 3 lpm NC; lh3 07:12 BP 157 / 87; Pulse 58; Resp 18; Pulse Ox 100% on 3 lpm NC; Pain 0/10; ch5 ED Course: 06:01 Patient arrived in ED. jb4 06:04 Triage completed. jb4 06:06 Mimi Arroyo, KYREE is Primary Nurse. lh3 06:06 Arm band placed on right wrist. jb4 06:12 Mackenzie Wheeler FNP-C is PHCP. kb 06:12 Bravo Melton MD is Attending Physician. kb 06:30 C-Reactive Protein Sent. lh3 06:30 CBC with Automated Diff Sent. lh3 06:30 Blood Culture Sent. lh3 06:30 Basic Metabolic Panel Sent. lh3 06:30 BMP Sent. lh3 06:30 Blood Culture Adult (2) Sent. lh3 06:30 C-Reactive Protein Sent. lh3 06:30 CBC with Diff Sent. lh3 06:30 D-Dimer Sent. lh3 06:30 Ferritin Sent. lh3 06:30 LFT's Sent. lh3 06:30 Lactate Sent. lh3 06:31 Lipase Sent. lh3 06:31 PT-INR Sent. lh3 06:31 Procalcitonin Sent. lh3 06:31 Ptt, Activated Sent. lh3 06:31 Troponin (emerg Dept Use Only) Sent. lh3 06:33 Patient has correct armband on for positive identification. Bed in low position. Call lh3 light in reach. Side rails up X2. Door closed. Noise minimized. Moved to private room. 06:33 No provider procedures requiring assistance completed. Inserted saline lock: 22 gauge lh3 in right antecubital area, using aseptic technique. 06:55 C-Reactive Protein Sent. lh3 06:55 Blood Culture Sent. lh3 06:55 Basic Metabolic Panel Sent. lh3 06:56 Troponin (emerg Dept Use Only) Sent. lh3 06:56 Ptt, Activated Sent. lh3 07:02 Primary Nurse role handed off by Mimi Arroyo, RN ch5 07:02 Kobe Parker, RN is Primary Nurse. ch5 07:48 CXR XRAY In Process Unspecified. EDMS 08:46 Brennan Briseno MD is Hospitalizing Provider. kb Administered Medications: 10:00 Drug: SOLU-Medrol (methylPrednisoLONE) 125 mg Route: IVP; Site: right antecubital; ch5 10:00 Drug: Zofran (Ondansetron) 4 mg Route: IVP; Site: right antecubital; ch5 Outcome: 08:46 Decision to Hospitalize by Provider. kb 05/23 14:21 Patient left the ED. eb Signatures: Dispatcher [employer] EDMS Mackenzie Wheeler, MADISON EAGLE-Timothy Alford, RN RN jb4 Marianna Danielson Latisha, RN RN lh3 Kobe Parker, KYREE RN ch5 Corrections: (The following items were deleted from the chart) 05/22 06:15 06:06 Social history: Smoking status: Patient denies any tobacco usage or history of. jb4 jb4 06:59 06:31 BP 165 / 96; Pulse 54bpm; Resp 18bpm; Pulse Ox 99% 2 lpm Nasal Cannula; 3 lh3 07:42 06:55 CORONAVIRUS+ drawn and sent. 3 EDMS 07:52 06:01 Chief complaint: EMS states: Pt is from [facility]. Pt's nurse ch5 reports that she was recently diagnosed with Covid on the and later diagnosed with Pneumonia. The nurse went to check on her this morning and she was satting 78% on RA. Pt placed on 3L NC. jb4 08:21 07:12 BP 157 / 87; Pulse 58bpm; Resp 18bpm; Pulse Ox 100% 2 lpm Nasal Cannula; Pain ch5 0/10; ch5
--- NOTE | 2021-05-22 08:47 | EDPHYS ---
Physician Documentation [facility] Name: Vaishali Chavarria Age: 75 yrs Sex: Female : 1945 Arrival Date: 05/22/2021 Time: 06:01 Bed 23 Private MD: ED Physician Bravo Melton HPI: 05/22 06:42 This 75 yrs old Female presents to ER via EMS with complaints of hypoxia. kb 06:43 The patient has shortness of breath at rest. Onset: The symptoms/episode began/occurred kb 9 day(s) ago. Duration: The symptoms are continuous. The patient's shortness of breath is aggravated by nothing, is alleviated by nothing. Associated signs and symptoms: The patient has no apparent associated signs or symptoms. Severity of symptoms: At their worst the symptoms were mild moderate in the emergency department the symptoms are unchanged. The patient has not experienced similar symptoms in the past. The patient has been recently seen by a physician:. skilled nursing reports pt was recently diagnosed with covid and pneumonia. They checked her oxygen saturation this morning and it read 78% so they called 911 to bring her in. . Historical: - Allergies: 06:06 Iodine; jb4 06:06 PENICILLINS; jb4 06:06 Shellfish Containing Products; jb4 - Home Meds: 06:06 amlodipine 10 mg tab 1 tab once daily [Active]; aspirin 81 mg Oral cpDR 81 mg daily jb4 [Active]; gabapentin 100 mg oral cap 1 cap twice a day [Active]; ipratropium-albuterol 0.5 mg-3 mg(2.5 mg base)/3 mL Inhl nebu Q4hr PRN [Active]; lisinopril 20 mg Oral tab 2 tabs once daily [Active]; loratadine 10 mg oral tab 1 tab once daily [Active]; polyethylene glycol 3350 17 gram oral pwpk 1 packet once daily [Active]; Senna with Docusate Sodium 8.6-50 mg oral tab 2 tabs 2 times per day [Active]; simvastatin 10 mg Oral tab 1 tab once daily [Active]; tramadol 50 mg Oral tab 1 tab three times a day [Active]; Zofran 4 mg Oral tab 1 tab 4 times per day [Active]; - PMHx: 06:06 CVA; Pneumonia; Hyperlipidemia; Dysphagia; Hemiplegia; Hypertensive disorder; jb4 Polyneuropathy; - Immunization history:: Adult Immunizations up to date, Client reports receiving the 2nd dose of the Covid vaccine, Date received: October 28, 2020 Client reports receiving the 1st dose of the Covid vaccine, October 07, 2020. - Social history:: Smoking status: Patient/guardian denies using tobacco. ROS: 06:40 Constitutional: Negative for fever, chills, and weight loss. kb 06:40 Unable to obtain ROS due to baseline dementia. Exam: 06:29 ECG was reviewed by the Attending Physician. kb 06:40 Constitutional: This is a well developed, well nourished patient who is awake, alert, kb and in no acute distress. Head/Face: Normocephalic, atraumatic. ENT: Moist Mucous membranes Cardiovascular: Regular rate and rhythm with a normal S1 and S2. No gallops, murmurs, or rubs. No pulse deficits. Respiratory: Respirations even and unlabored. No increased work of breathing, no retractions or nasal flaring. Abdomen/GI: Soft, non-tender. No distention Skin: Warm, dry with normal turgor. Normal color. 06:40 Musculoskeletal/extremity: Exam is negative for acute changes. 06:40 Neuro: Exam negative for acute changes, Orientation: no acute changes, per EMS, to person. Vital Signs: 06:01 BP 175 / 93; Pulse 55; Resp 18; Temp 97.5(TE); Pulse Ox 98% on 3 lpm NC; jb4 06:31 BP 165 / 96; Pulse 54; Resp 18; Pulse Ox 99% on 3 lpm NC; lh3 06:58 Pulse Ox 3 lpm NC; lh3 07:12 BP 157 / 87; Pulse 58; Resp 18; Pulse Ox 100% on 3 lpm NC; Pain 0/10; ch5 MDM: 06:12 Patient medically screened. kb 06:41 Data reviewed: vital signs, nurses notes. Data interpreted: Pulse oximetry: on room air kb is 78 %. Interpretation: hypoxia. ED course: skilled nursing and EMS report room air saturation of 78-80% on room air. Pt 98% on 3L O2. . 08:45 Counseling: I had a detailed discussion with the patient and/or guardian regarding: the kb historical points, exam findings, and any diagnostic results supporting the discharge/admit diagnosis, lab results, radiology results, the need for further work-up and treatment in the hospital. 05/22 06:12 Order name: BMP kb 05/22 06:12 Order name: Blood Culture Adult (2) kb 05/22 06:12 Order name: C-Reactive Protein kb 05/22 06:12 Order name: CBC with Diff kb 05/22 06:12 Order name: D-Dimer; Complete Time: 06:58 kb 05/22 06:12 Order name: Ferritin; Complete Time: 07:40 kb 05/22 06:12 Order name: LFT's; Complete Time: 07:40 kb 05/22 06:12 Order name: Lactate; Complete Time: 07:22 kb 05/22 06:12 Order name: Lipase; Complete Time: 07:40 kb 05/22 06:12 Order name: PT-INR; Complete Time: 06:58 kb 05/22 06:12 Order name: Procalcitonin; Complete Time: 13:38 kb 05/22 06:12 Order name: Ptt, Activated; Complete Time: 06:58 kb 05/22 06:12 Order name: Troponin (emerg Dept Use Only); Complete Time: 07:40 kb 05/22 06:13 Order name: Basic Metabolic Panel; Complete Time: 07:40 EDMS 05/22 06:12 Order name: CXR XRAY; Complete Time: 11:00 kb 05/22 06:12 Order name: EKG; Complete Time: 06:13 kb 05/22 06:12 Order name: Cardiac monitoring; Complete Time: 06:30 kb 05/22 06:12 Order name: Droplet/Contact Precautions; Complete Time: 06:30 kb 05/22 06:13 Order name: Blood Culture; Complete Time: 07:25 EDMS 05/22 06:13 Order name: C-Reactive Protein; Complete Time: 07:40 EDMS 05/22 06:13 Order name: CBC with Automated Diff; Complete Time: 06:52 EDMS 05/22 08:45 Order name: SARS-COV-2 RT PCR; Complete Time: 08:46 EDMS 05/22 18:30 Order name: Glucose, Ancillary Testing; Complete Time: 07:25 EDMS 05/23 04:54 Order name: Basic Metabolic Panel; Complete Time: 07:25 EDMS 05/23 05:15 Order name: CBC with Automated Diff; Complete Time: 07:25 [facility] 05/23 12:38 Order name: CT; Complete Time: 12:40 [facility] 05/22 06:12 Order name: EKG - Nurse/Tech; Complete Time: 06:30 kb 05/22 06:12 Order name: IV Start; Complete Time: 06:30 kb 05/22 06:12 Order name: Labs collected and sent; Complete Time: 06:30 kb 05/22 06:12 Order name: O2 Per Protocol; Complete Time: 06:30 kb 05/22 06:12 Order name: O2 Sat Monitoring; Complete Time: 06:30 kb EC: Rate is 50 beats/min. Rhythm is regular. QRS [place] is Normal. [place] interval is normal at kb 150 msec. QRS interval is normal at 92 msec. QT interval is normal at 444 msec. Administered Medications: 10:00 Drug: SOLU-Medrol (methylPrednisoLONE) 125 mg Route: IVP; Site: right antecubital; ch5 10:00 Drug: Zofran (Ondansetron) 4 mg Route: IVP; Site: right antecubital; 5 Disposition Summary: 05/22/21 08:46 Hospitalization Ordered Hospitalization Status: Inpatient Admission kb Provider: Brennan Briseno Condition: Stable kb Problem: new kb Symptoms: are unchanged kb Bed/Room Type: Standard Location: Telemetry/MedSurg (Inpatient)(05/23/21 13:13) dw Room Assignment: 405(05/23/21 13:13) dw Diagnosis - Coronavirus infection, unspecified kb - Hypoxia kb Forms: - Medication Reconciliation Form kb - SBAR form kb Addendum: 05/26/2021 07:13 Co-signature as Attending Physician, Bravo Melton MD. r n 07:14 I agree with the assessment and plan of care. Attestation: The patient's history, exam r n findings, diagnostics, and a summary of any interventions or procedures was reviewed in detail with Mackenzie WALLACE. Signatures: Dispatcher [employer] [facility] Mackenzie Wheeler FNP-C FNP-Citlali Cash RN RN dw Nieto, Roman, MD MD rn Smirch, Shelby, RN RN Timothy Spence RN RN [facility] Kobe Parker RN RN ch5 Corrections: (The following items were deleted from the chart) 05/22 06:15 06:06 Social history: Smoking status: Patient denies any tobacco usage or history of. hawk arechiga 07:42 06:43 CORONAVIRUS+MR.LAB.BRZ ordered. EDMS EDMS 07:59 07:41 Chest For PE Angio+CT.RAD.BRZ ordered. EDMS EDMS 16:22 08:46 Telemetry/MedSurg (Inpatient) kb ss 16:22 08:46 kb ss 05/23 13:13 05/22 16:22 [facility] ER HOLD ss dw 05/23 13:13 05/22 16:22 ERHOLD- ss dw
[2021-05-22] MEDS ORDERED: METHYLPREDNISOLONE 125 MG INJ ONE (10:19)
[2021-05-22] MEDS ORDERED: ONDANSETRON 4 MG/2 ML VIAL ONE (10:19)
--- NOTE | 2021-05-22 10:41 | RAD REPORT ---
EXAM DESCRIPTION: RAD - Chest Single View - 05/22/2021 7:48 am CLINICAL HISTORY: DYSPNEA Chest pain. COMPARISON: No comparisons FINDINGS: Portable technique limits examination quality. The lungs are grossly clear. The heart is normal in size. No displaced fractures.Aortic atheroscleros is. IMPRESSION: No acute intrathoracic process suspected.
--- NOTE | 2021-05-22 12:01 | P.HP ---
Certification for Inpatient Patient admitted to: Inpatient With expected LOS: >2 Midnights Patient will require the following post-hospital care: Long-Term Practitioner: I am a practitioner with admitting privileges, knowledge of patient current condition, hospital course, and medical plan of care. Services: Services provided to patient in accordance with Admission requirements found in Title 42 Section 412.3 of the Code of Federal Regulations Patient History Date of Service: 05/22/21 Primary Care Provider: Finn Reason for admission: Covid positive History of Present Illness: Patient is an snf patient of mine. She has a history of htn, dm2, left sided hemiplegia after a stroke. She had a fall and was hypoxic. Had ordered an x ray. she was getting more hypoxic. [facility] called me this morning and she was sent to the ER. The patient was found to be covid positive. She is not very good at giving a history however that is here baseline. - Past Medical/Surgical History Has patient received pneumonia vaccine in the past: No Diabetic: Yes Review of Systems is unable to be obtained Physical Examination - Physical Exam General: Alert, In no apparent distress HEENT: Atraumatic, PERRLA, Mucous membr. moist/pink, EOMI, Sclerae nonicteric Neck: Supple, 2+ carotid pulse no bruit, No LAD, Without JVD or thyroid abnormality Respiratory: Clear to auscultation bilaterally, Normal air movement Cardiovascular: Regular rate/rhythm, Normal S1 S2 Gastrointestinal: Normal bowel sounds, No tenderness Musculoskeletal: No tenderness Integumentary: No rashes Neurological: Normal gait, Normal speech, Normal strength at 5/5 x4 extr, Normal tone, Normal affect Lymphatics: No axilla or inguinal lymphadenopathy - Studies Laboratory Data (last 24 hrs) 05/22/21 06:24: PT 11.7, INR 1.02, APTT 35.9 05/22/21 06:24: WBC 4.90, Hgb 14.3, Hct 42.8, Plt Count 252 05/22/21 06:24: Sodium 144, Potassium 4.0, BUN 20 H, Creatinine 0.57, Glucose 102, Total Bilirubin 0.4, AST 17, ALT 21, Alkaline Phosphatase 85, Lipase 34 L Assessment and Plan - Problems (Diagnosis) (1) COVID-19 Current Visit: Yes Status: Acute Plan: will consult Dr. Aggrawahl. Continue oxygen. Start the patient on solumedrol, ivermectin and balrcitnib (2) HTN (hypertension) Current Visit: Yes Status: Acute Plan: Will check the chart for the patients home medications. Adjust as necesary. Qualifiers: Hypertension type: primary hypertension Qualified Code(s): I10 - Essential (primary) hypertension (3) DM2 (diabetes mellitus, type 2) Current Visit: Yes Status: Acute Plan: will put her on a sliding scale for now. Will check a1c q4hrs as the patient should be on high dose steroids. Qualifiers: Diabetes mellitus exterminator helper termite insulin use: with exterminator helper termite use Diabetes mellitus complication status: with other specified complication Qualified Code(s): E11.69 - Type 2 diabetes mellitus with other specified complication; Z79.4 - laborer marine terminal (current) use of insulin (4) Hemiplegia Current Visit: Yes Status: Chronic Plan: keep her on falll precautions. Discharge Plan: Home Plan to discharge in: Greater than 2 days - Advance Directives Does patient have a Living Will: No Does patient have a Durable POA for Healthcare: No - Code Status/Comfort Care Code Status Assessed: No Code Status: Full Code Physician Review: Patient Assessed, Agree with Above Assessment and Plan Critical Care: No Time Spent Managing Pts Care (In Minutes): 45
[2021-05-22] MEDS ORDERED: ACETAMINOPHEN 500 MG TAB PO PRN (13:02)
[2021-05-22] MEDS: IVERMECTIN 3 MG TABLET PO SCH (16:59)
[2021-05-22] MEDS: METHYLPREDNISOLONE 40 MG INJ IV SCH (17:28)
[2021-05-22] MEDS ORDERED: METHYLPREDNISOLONE 40 MG INJ ONE (17:47)
[2021-05-23 04:35] LABS: Absolute Lymphocytes (CBC) 0.4 K/uL (0.7-4.9); Basophils % 0.1 % (0-1.3); Hematocrit 43.1 % (36.0-45.0); Lymphocytes % 13.3 % (15.3-44.8); RBC Red Blood Cell Count 4.85 M/uL (3.86-4.86)
[2021-05-23 04:53] LABS: Potassium 4.3 mmol/L (3.5-5.1)
[2021-05-23] MEDS: METHYLPREDNISOLONE 40 MG INJ IV SCH ×2 (05:26→08:47)
[2021-05-23] MEDS ORDERED: METHYLPREDNISOLONE 40 MG INJ ONE ×2 (05:45→08:21)
[2021-05-23] MEDS ORDERED: ZINC SULFATE 220 MG CAP ONE (08:20)
[2021-05-23] MEDS ORDERED: VITAMIN D 1000 UNIT TAB ONE (08:21)
[2021-05-23] MEDS: ZINC SULFATE 220 MG CAP PO SCH (08:47)
[2021-05-23] MEDS: VITAMIN D 5,000 UNIT CAP PO SCH (08:47)
[2021-05-23] MEDS ORDERED: BARICITINIB 2 MG TABLET PO SCH (09:00)
[2021-05-23] MEDS: IVERMECTIN 3 MG TABLET PO SCH (09:36)
--- NOTE | 2021-05-23 11:53 | P.CNS ---
Date of Consult: 05/23/21 Reason for Consult: Coronavirus pneumonia Primary Care Provider: Finn Chief Complaint: Covid positive History of Present Illness: Patient is 75 years of age detention resident aphasic with metabolic syndrome. With hypoxemia secondary to coronavirus pneumonia she is currently stable on nasal cannula oxygen though experiencing bradycardia Allergies iodine Allergy (Verified 05/22/21 21:38) Anaphylaxis Penicillins Allergy (Verified 05/22/21 21:38) Anaphylaxis shellfish derived Allergy (Verified 05/22/21 21:38) Anaphylaxis - Past Medical/Surgical History Diabetic: Yes Review of Systems is unable to be obtained Physical Examination Temp Pulse Resp BP Pulse Ox 98.1 F 50 20 164/89 H 99 05/23/21 08:00 05/23/21 08:00 05/23/21 07:35 05/23/21 08:00 05/23/21 08:00 General: Alert, Cooperative - Problems (1) 2019 novel coronavirus-infected pneumonia (NCIP) Current Visit: Yes Status: Acute Plan: Patient is 75 years of age detention resident admitted with possible mild coronavirus pneumonia she is currently stable on nasal cannula oxygen but pressure mildly elevated sats satisfactory 99% on 1 L.pressure elevated. Discharge possible treatment with antibodies changed to p.o. Decadron CRP is only mildly elevated
--- NOTE | 2021-05-23 12:16 | P.PN ---
Subjective Date of Service: 05/23/21 Primary Care Provider: Finn Chief Complaint: Covid positive Subjective: Worsening (Patient is much less responsive today then she was from yesterday or her baseline) Review of Systems is unable to be obtained Physical Examination - Vital Signs Temperature: 98.1 F Blood Pressure: 164/89 Pulse: 50 Respirations: 20 Pulse Ox (%): 99 - Physical Exam General: Alert, In no apparent distress HEENT: Atraumatic, PERRLA, EOMI Neck: Supple, JVD not distended Respiratory: Clear to auscultation bilaterally, Normal air movement Cardiovascular: Regular rate/rhythm, Normal S1 S2 Gastrointestinal: Normal bowel sounds, No tenderness Musculoskeletal: No tenderness Integumentary: No rashes Neurological: Normal speech, Normal tone, Normal affect Lymphatics: No axilla or inguinal lymphadenopathy Assessment & Plan - Problems (Diagnosis) (1) COVID-19 Current Visit: Yes Status: Acute Plan: will consult Dr. Agustin. Continue oxygen. Start the patient on decadron Stable from a covid point view. Possible discharge on decadrone. (2) HTN (hypertension) Current Visit: Yes Status: Acute Plan: Will check the chart for the patients home medications. Adjust as necesary. Qualifiers: Hypertension type: primary hypertension Qualified Code(s): I10 - Essential (primary) hypertension (3) DM2 (diabetes mellitus, type 2) Current Visit: Yes Status: Acute Plan: will put her on a sliding scale for now. Will check a1c q4hrs as the patient should be on high dose steroids. Qualifiers: Diabetes mellitus terminal clerk insulin use: with prison use Diabetes mellitus complication status: with other specified complication Qualified Code(s): E11.69 - Type 2 diabetes mellitus with other specified complication; Z79.4 - USP (current) use of insulin (4) Hemiplegia Current Visit: Yes Status: Chronic Plan: keep her on falll precautions. (5) Altered mental state Current Visit: Yes Status: Acute Plan: will order a stat ct on the patient Qualifiers: Altered mental status type: unspecified Qualified Code(s): R41.82 - Altered mental status, unspecified Discharge Plan: Long-Term Plan to discharge in: 48 Hours - Code Status/Comfort Care Code Status Assessed: No Physician Review: Patient Assessed, Agree with Above Assessment and Plan Critical Care: No Time Spent Managing Pts Care (In Minutes): 25
--- NOTE | 2021-05-23 12:38 | RAD REPORT ---
EXAM DESCRIPTION: CT - Head Brain Wo Cont - 05/23/2021 12:26 pm CLINICAL HISTORY: Alteration of awareness/confusion COMPARISON: 2019 TECHNIQUE: Computed axial tomography of the head was obtained. IV contrast was not requested. All CT scans are performed using dose optimization technique as appropriate and may include automated exposure control or mA/KV adjustment according to patient size. FINDINGS: An intracranial bleed is not seen . Small low-density area within the thalamus old lacunar infarction. Low-density within the right perry and midbrain old infarction. Hydrocephalus is not suspected No extra-axial fluid collection is noted. Cerebral atrophy is present Moderate low-density areas within periventricular, deep and subcortical white matter likely represent ischemic changes secondary to small vessel disease. Fluid within the sinuses/ mastoids is not seen. IMPRESSION: No acute intracranial abnormality is seen. If patient's symptoms persist MRI of the bra in would be recommended.
[2021-05-23 15:47] VITALS: BMI 4218.0
[2021-05-23] MEDS: dexAMETHasone 4 MG TAB PO SCH (20:20)
[2021-05-24] MEDS: ZINC SULFATE 220 MG CAP PO SCH (10:31)
[2021-05-24] MEDS: dexAMETHasone 4 MG TAB PO SCH ×2 (10:31→20:18)
[2021-05-24] MEDS: VITAMIN D 5,000 UNIT CAP PO SCH (10:32)
[2021-05-24] MEDS: IVERMECTIN 3 MG TABLET PO SCH (12:41)
--- NOTE | 2021-05-24 12:54 | P.PN ---
Subjective Date of Service: 05/24/21 Primary Care Provider: Finn Chief Complaint: Covid positive Subjective: Improving (she tracks and acknowledges today) Review of Systems is unable to be obtained Physical Examination - Vital Signs Temperature: 97.7 F Blood Pressure: 148/77 Pulse: 55 Respirations: 16 Pulse Ox (%): 96 - Physical Exam General: In no apparent distress, Confused HEENT: Atraumatic, PERRLA, EOMI Neck: Supple, JVD not distended Respiratory: Clear to auscultation bilaterally, Normal air movement Cardiovascular: Regular rate/rhythm, Normal S1 S2 Gastrointestinal: Normal bowel sounds, No tenderness Musculoskeletal: No tenderness Integumentary: No rashes Neurological: Normal speech, Normal tone, Normal affect Lymphatics: No axilla or inguinal lymphadenopathy Assessment & Plan - Problems (Diagnosis) (1) COVID-19 Current Visit: Yes Status: Acute Plan: will consult Dr. Agustin. Continue oxygen. Start the patient on decadron Stable from a covid point view. Possible discharge on decadrone. (2) HTN (hypertension) Current Visit: Yes Status: Acute Plan: Will check the chart for the patients home medications. Adjust as necesary. Qualifiers: Hypertension type: primary hypertension Qualified Code(s): I10 - Essential (primary) hypertension (3) DM2 (diabetes mellitus, type 2) Current Visit: Yes Status: Acute Plan: will put her on a sliding scale for now. Will check a1c q4hrs as the patient should be on high dose steroids. Qualifiers: Diabetes mellitus nursing home insulin use: with extermination supervisor use Diabetes mellitus complication status: with other specified complication Qualified Code(s): E11.69 - Type 2 diabetes mellitus with other specified complication; Z79.4 - half-way (current) use of insulin (4) Hemiplegia Current Visit: Yes Status: Chronic Plan: keep her on falll precautions. (5) Altered mental state Current Visit: Yes Status: Acute Plan: normal ct . Negative blood cultures. Will order a ua on the patinet Qualifiers: Altered mental status type: unspecified Qualified Code(s): R41.82 - Altered mental status, unspecified Discharge Plan: Custodial Plan to discharge in: 48 Hours - Code Status/Comfort Care Code Status Assessed: No Physician Review: Patient Assessed, Agree with Above Assessment and Plan Critical Care: No Time Spent Managing Pts Care (In Minutes): 20
[2021-05-24 19:14] LABS: Urine Appearance CLEAR (Clear); Urine Bilirubin NEGATIVE (Negative); Urine Blood NEGATIVE (Negative); Urine Color YELLOW (Yellow); Urine Glucose NEGATIVE (Negative); Urine Protein NEGATIVE (Negative); Urine Specific Gravity 1.015 (1.005-1.030)
[2021-05-24] MEDS: TRAMADOL HCL 50 MG TAB PO SCH (20:18)
[2021-05-24] MEDS: GABAPENTIN 100 MG CAP PO SCH (20:18)
[2021-05-24 20:31] LABS: Urine Microscopic Reflex ORDER UMIC
[2021-05-24 20:52] LABS: Urine Bacteria <20 /HPF (<20); Urine RBC <5 /HPF (NONE SEEN)
[2021-05-24 20:53] LABS: Urine Amorphous Sediment 1+ /HPF (NONE SEEN); Urine Mucus 3+ /HPF (NONE SEEN)
[2021-05-25 07:58] LABS: Bilirubin Total 0.3 mg/dL (0.2-1.0); Potassium 4.2 mmol/L (3.5-5.1); Protein, Total 6.7 g/dL (6.4-8.2)
[2021-05-25 08:04] LABS: Absolute Lymphocytes (CBC) 0.4 K/uL (0.7-4.9); Basophils % 0.2 % (0-1.3); Hematocrit 40.1 % (36.0-45.0); MPV 9.3 fL (7.6-11.3); RBC Red Blood Cell Count 4.52 M/uL (3.86-4.86)
[2021-05-25 08:48] LABS: Blood Morphology Comment NOT SEEN (NOT SEEN); Platelet Estimate ADEQ; White Blood Cell Scan OK (OK)
[2021-05-25] MEDS ORDERED: ATORVASTATIN 10 MG TAB PO SCH (09:00)
[2021-05-25] MEDS: IVERMECTIN 3 MG TABLET PO SCH (09:57)
[2021-05-25] MEDS: dexAMETHasone 4 MG TAB PO SCH ×2 (09:57→20:40)
[2021-05-25] MEDS: TRAMADOL HCL 50 MG TAB PO SCH ×3 (09:58→20:40)
[2021-05-25] MEDS: DOCUSATE NA/SENNA CONC 1 TAB PO SCH (09:58)
[2021-05-25] MEDS: ZINC SULFATE 220 MG CAP PO SCH (09:58)
[2021-05-25] MEDS: VITAMIN D 5,000 UNIT CAP PO SCH (09:58)
[2021-05-25] MEDS: GABAPENTIN 100 MG CAP PO SCH ×2 (09:59→20:40)
--- NOTE | 2021-05-25 18:53 | P.PN ---
Subjective Date of Service: 05/25/21 Primary Care Provider: Finn Chief Complaint: Covid positive Subjective: No new changes Review of Systems is unable to be obtained Physical Examination - Vital Signs Temperature: 98.2 F Blood Pressure: 132/80 Pulse: 47 Respirations: 16 Pulse Ox (%): 97 - Physical Exam General: Alert, In no apparent distress HEENT: Atraumatic, PERRLA, EOMI Neck: Supple, JVD not distended Respiratory: Clear to auscultation bilaterally, Normal air movement Cardiovascular: Regular rate/rhythm, Normal S1 S2 Gastrointestinal: Normal bowel sounds, No tenderness Musculoskeletal: No tenderness Integumentary: No rashes Neurological: Normal speech, Normal tone, Normal affect Lymphatics: No axilla or inguinal lymphadenopathy Assessment & Plan - Problems (Diagnosis) (1) COVID-19 Current Visit: Yes Status: Acute Plan: will consult Dr. Agustin. Continue oxygen. Start the patient on decadron Stable from a covid point view. Possible discharge on decadrone. (2) HTN (hypertension) Current Visit: Yes Status: Acute Plan: Will check the chart for the patients home medications. Adjust as necesary. Qualifiers: Hypertension type: primary hypertension Qualified Code(s): I10 - Essential (primary) hypertension (3) DM2 (diabetes mellitus, type 2) Current Visit: Yes Status: Acute Plan: will put her on a sliding scale for now. Will check a1c q4hrs as the patient should be on high dose steroids. Qualifiers: Diabetes mellitus ocean transportation intermediary insulin use: with care home use Diabetes mellitus complication status: with other specified complication Qualified Code(s): E11.69 - Type 2 diabetes mellitus with other specified complication; Z79.4 - ocean transportation intermediary (current) use of insulin (4) Hemiplegia Current Visit: Yes Status: Chronic Plan: keep her on falll precautions. (5) Altered mental state Current Visit: Yes Status: Acute Plan: normal ct . Negative blood cultures. Will order a ua on the patinet Qualifiers: Altered mental status type: unspecified Qualified Code(s): R41.82 - Altered mental status, unspecified (6) Encephalitis Current Visit: Yes Status: Acute Plan: Patient has not returned to baseline. Will order an MRI and consult Dr. Pepe. Discharge Plan: Home Plan to discharge in: Greater than 2 days - Code Status/Comfort Care Code Status Assessed: No Physician Review: Patient Assessed, Agree with Above Assessment and Plan Critical Care: No
[2021-05-25] MEDS: ATORVASTATIN 10 MG TAB PO SCH (20:40)
[2021-05-25] MEDS: NITROFURAN MACRO 100 MG CAP PO SCH (20:40)
[2021-05-26 06:30] LABS: Absolute Lymphocytes (CBC) 0.4 K/uL (0.7-4.9); Basophils % 0.3 % (0-1.3); Hematocrit 42.3 % (36.0-45.0); Lymphocytes % 5.8 % (15.3-44.8); MPV 9.3 fL (7.6-11.3); RBC Red Blood Cell Count 4.75 M/uL (3.86-4.86)
[2021-05-26 06:46] LABS: Albumin 3.4 g/dL (3.4-5.0); Bilirubin Total 0.3 mg/dL (0.2-1.0); Potassium 4.3 mmol/L (3.5-5.1); Protein, Total 7.1 g/dL (6.4-8.2)
[2021-05-26 07:47] LABS: Blood Morphology Comment NOT SEEN (NOT SEEN); Platelet Estimate ADEQ; White Blood Cell Scan OK (OK)
[2021-05-26] MEDS: DOCUSATE NA/SENNA CONC 1 TAB PO SCH (09:20)
[2021-05-26] MEDS: ZINC SULFATE 220 MG CAP PO SCH (09:20)
[2021-05-26] MEDS: TRAMADOL HCL 50 MG TAB PO SCH ×3 (09:20→20:25)
[2021-05-26] MEDS: GABAPENTIN 100 MG CAP PO SCH ×2 (09:20→20:25)
[2021-05-26] MEDS: dexAMETHasone 4 MG TAB PO SCH ×2 (09:21→20:25)
[2021-05-26] MEDS: VITAMIN D 5,000 UNIT CAP PO SCH (09:21)
[2021-05-26] MEDS: NITROFURAN MACRO 100 MG CAP PO SCH ×2 (09:21→20:25)
[2021-05-26] MEDS: IVERMECTIN 3 MG TABLET PO SCH (09:53)
--- NOTE | 2021-05-26 16:16 | P.PN ---
Subjective Date of Service: 05/26/21 Primary Care Provider: Finn Chief Complaint: Covid positive Subjective: No new changes Review of Systems is unable to be obtained Physical Examination - Vital Signs Temperature: 97.6 F Blood Pressure: 157/85 Pulse: 40 Respirations: 20 Pulse Ox (%): 95 - Physical Exam General: In no apparent distress, Unresponsive HEENT: Atraumatic, PERRLA, EOMI Neck: Supple, JVD not distended Respiratory: Clear to auscultation bilaterally, Normal air movement Cardiovascular: Regular rate/rhythm, Normal S1 S2 Gastrointestinal: Normal bowel sounds, No tenderness Musculoskeletal: No tenderness Integumentary: No rashes Neurological: Normal speech, Normal tone, Normal affect Lymphatics: No axilla or inguinal lymphadenopathy Assessment & Plan - Problems (Diagnosis) (1) COVID-19 Current Visit: Yes Status: Acute Plan: will consult Dr. Agustin. Continue oxygen. Start the patient on decadron Stable from a covid point view. Possible discharge on decadrone. (2) HTN (hypertension) Current Visit: Yes Status: Acute Plan: Will check the chart for the patients home medications. Adjust as necesary. Qualifiers: Hypertension type: primary hypertension Qualified Code(s): I10 - Essential (primary) hypertension (3) DM2 (diabetes mellitus, type 2) Current Visit: Yes Status: Acute Plan: will put her on a sliding scale for now. Will check a1c q4hrs as the patient should be on high dose steroids. Qualifiers: Diabetes mellitus terminologist insulin use: with terminologist use Diabetes mellitus complication status: with other specified complication Qualified Code(s): E11.69 - Type 2 diabetes mellitus with other specified complication; Z79.4 - nursing home (current) use of insulin (4) Hemiplegia Current Visit: Yes Status: Chronic Plan: keep her on falll precautions. (5) Altered mental state Current Visit: Yes Status: Acute Plan: She is not eating at this point may be a development of covid encephalitis. Will order mri. consult to Dr. Pepe. Will have the patient see by yuridia. Will consider discussing with the family for end of life care Qualifiers: Altered mental status type: unspecified Qualified Code(s): R41.82 - Altered mental status, unspecified (6) Encephalitis Current Visit: Yes Status: Acute Plan: Patient has not returned to baseline. Will order an MRI and consult Dr. Pepe. Discharge Plan: Home Plan to discharge in: 24 Hours Physician Review: Patient Assessed, Agree with Above Assessment and Plan Critical Care: No Time Spent Managing Pts Care (In Minutes): 25
[2021-05-26] MEDS ORDERED: THIAMINE 200 MG/2 ML INJ IVP ONE (17:00)
[2021-05-26] MEDS: D5 0.45 NS 1,000 ML IV SCH (17:30)
--- NOTE | 2021-05-26 19:50 | RAD REPORT ---
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 Coronal imaging plane acquisition u tilized. A 15 MultiHance contrast volume was utilized. Coronal reformatted images were generated and reviewed. Vertical axis 3D rotational projections obtained using maximum intensity projection protoco l. FINDINGS: Aortic arch is bovine configuration with no origins stenosis. Right vertebral artery origi n is too obscured by adjacent vasculature and motion to allow assessment. The tortuous left proximal vertebral artery shows no origin stenosis. The left vertebral artery is dominant with no dissection o r acute vertebral finding. Tortuous basilar artery also without significant finding. Proximal common carotid arteries are quite tortuous as well. No focal stenosis is identifiable in eit her common carotid artery. Tortuous internal carotid arteries are within a dissection, stenosis or si gnificant finding. No aneurysm or vascular malformation. No vasculitis findings. IMPRESSION: MRA neck examination as detailed above is without acute or significant finding.
--- NOTE | 2021-05-26 19:53 | RAD REPORT ---
EXAM DESCRIPTION: MRI - MRA Head Wo Cont - 05/26/2021 7:39 pm CLINICAL HISTORY: COVID encephalitis, transient alteration of awareness COMPARISON: None. TECHNIQUE: Axial and coronal 3D [id number]-bhmbsm image acquisition was performed. 3D rotational images were generated with source and reconstruction images reviewed. Horizontal and vertical axis rotation al views generated using MIP protocol. FINDINGS: No central aneurysm or vascular malformation identifiable. The distal internal carotid art eries and basilar artery show no significant findings. Right anterior cerebral artery A1 segment is s mall. The left A1 YUE segment is unremarkable. The bilateral P1 WIND UP WORKER segments unremarkable. Exam has s ignificant technical limitation. The mid and distal portions of the anterior, middle and posterior ce rebral artery distributions are not optimally visualized. Major venous sinuses are patent. IMPRESSION: MRA head examination is significantly limited. No central vascular abnormality of signif icance. The peripheral anterior, middle and posterior cerebral artery distributions are poorly visual ized.
--- NOTE | 2021-05-26 20:00 | RAD REPORT ---
EXAM DESCRIPTION: MRI - Brain W/Wo Cont - 05/26/2021 7:39 pm CLINICAL HISTORY: COVID ENCEPHALITIS COMPARISON: MRA Head Wo Cont dated 05/26/2021; MRA Neck W/Wo Cont dated 05/26/2021; Head Brain Wo Cont d ated 05/23/2021 TECHNIQUE: Sagittal and axial T1-weighted images were obtained. Axial PD/heavily T2-weighted and T2- FLAIR images were obtained along with axial DWI/ADC mapping sequences. Coronal heavily T2 weighted s equence obtained. Axial and coronal post-contrast T1-weighted images were also obtained. A 15 ml Mul tihance contrast following utilized. FINDINGS: No intracranial hemorrhage, mass or acute infarction. There is no edema or shift of midli ne structures. No extra-axial fluid collections. Orr-matter/white matter junction is preserved. Sig nal voids are seen as a normal finding in the major venous sinuses and the central arterial tree. No sella or supra sella abnormality identified. Patient has advanced for age atrophy with ventricles in proportion. There is extensive chronic ischem ic change throughout the cerebral white matter involving the thalamus, basal ganglia and brainstem ti ssues. T1 weighted sequences showed numerous areas of hypointense signal in the perry, right-side midb rain and left-side thalamus. These are likely areas of prior ischemic insult. Post-contrast view show no abnormal enhancement. No dural thickening. No globe or orbital content abnormality identified. Mastoid air cells and paranasal sinuses are clear. IMPRESSION: Patient has quite advanced atrophy with ventricles remaining in proportion to the amount of volume loss. Patient also has substantial chronic ischemic change in the cerebral white matter, t halamus and brainstem tissues. No acute intracranial finding. No finding on this examination is felt to be attributable to a recent COVID infection.
[2021-05-26] MEDS: ATORVASTATIN 10 MG TAB PO SCH (20:25)
--- NOTE | 2021-05-26 21:34 | CON ---
Reason For Consultation: Consultation called by Dr. Briseno because of poor responsiveness. She is CO VID positive. History Of Present Illness: Ms. Chavarria is a 75-year-old right-handed patient who resides at a local [facility] and has had history of hypertension, diabetes, stroke with left hemiplegia and from chart review has had advanced diffuse brain atrophy from a scan done on December 18, 2019, became m ore disoriented, confused, and was found to be hypoxic and [facility] called her primar care physician, Dr. Briseno. She came to [facility]. She was found to be COVID positive. She was put on oxygen and was evaluated by head CT scan, which showed the presence of diffuse to adva nced moderate small vessel ischemic disease. There was no acute change. There was an old infarct in the thalamus and right midbrain. Her chest x-ray showed no acute cardiothoracic processes. Her blo od work showed an essentially normal complete blood count with differential. Coagulation panel showe d D-dimer elevated at 1206. Chemistries showed glucose range 142 to 163. Liver function studies ess entially unremarkable. Her sodium and chloride and BUN were all elevated consistent with dehydration . Urinalysis showed a trace of esterase and she is COVID positive. Since hospitalization, nursing meka kitchen reports that she does withdraw to noxious stimulation, does that focally. She does have spontan eous eye opening and looks around, but has decreased response to visual threat. No response to verba l communication. Past Medical History: As noted above. Allergies: IODINE, PENICILLIN, SHELLFISH. Current Medications: Lipitor 10 mg at bedtime, Tylenol Extra Strength 500 mg every 6 hours, vitamin D 5000 international units daily, Decadron 4 mg twice daily, Neurontin 100 mg twice daily, Macrobid 1 00 mg twice daily, Senokot at night, thiamine 100 mg daily IV, and zinc sulfate 220 mg margarita ly. Family History: Noncontributory. Review of Systems: Not possible. Physical Examination: Vital Signs: Blood pressure 122 to 157 over 78 to 85; pulse in the low 40s, 40 to 42; respiratory ra te 16 to 18, temperature 97.6, oxygen saturation 95% on 2 L O2. General: Ms. Chavarria is lying in bed. She does have her eyes spontaneously open and look occasionally to the left with mild appearing nystagmus with the eyes. Neurologic: She does not have any rhythmic movement of the arms, legs, or face. She has normal tone in the upper and lower extremities. Unable to fully assess her strength, sensation, coordination. Reflexes are symmetric. Unable to assess gait. Assessment: Ms. Chavarria is a 75-year-old patient with multifactorial encephalopathy. She does have ad vanced cerebral atrophy consistent with small vessel ischemic disease. 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 She has a possible urinary tract infectio n and she is dehydrated. Plan: 1.Rehydrate as appropriate. 2.Continue with the antibiotics as appropriate. 3.To reduce the risk of additional stroke, continue antiplatelet medication such as aspirin 81 mg da michelle. Continue Lipitor for dyslipidemia and address blood sugars which are somewhat slightly elevated . Okay to continue the thiamine, folic acid. Continue vitamin D and vitamin C may be added. 4.May have to consider long-term requirement for the patient given poor prognosis for excellent joellen very. She has COVID encephalopathy along with vascular dementia. May consider hospice at this age w ith poor prognosis for COVID recovery. JOHNSON/ROMARIO Voice ID: [id number] Report ID: [id number]
[2021-05-27 05:42] LABS: Absolute Lymphocytes (CBC) 0.4 K/uL (0.7-4.9); Basophils % 0.4 % (0-1.3); Hematocrit 40.8 % (36.0-45.0); Lymphocytes % 5.4 % (15.3-44.8); MPV 9.5 fL (7.6-11.3); RBC Red Blood Cell Count 4.54 M/uL (3.86-4.86)
[2021-05-27] MEDS: D5 0.45 NS 1,000 ML IV SCH ×3 (05:43→23:00)
[2021-05-27 05:59] LABS: Albumin 2.9 g/dL (3.4-5.0); Bilirubin Total 0.3 mg/dL (0.2-1.0); Potassium 4.1 mmol/L (3.5-5.1); Protein, Total 6.2 g/dL (6.4-8.2)
[2021-05-27] MEDS: NITROFURAN MACRO 100 MG CAP PO SCH ×2 (09:19→20:30)
[2021-05-27] MEDS: ZINC SULFATE 220 MG CAP PO SCH (09:20)
[2021-05-27] MEDS: TRAMADOL HCL 50 MG TAB PO SCH ×3 (09:20→20:30)
[2021-05-27] MEDS: dexAMETHasone 4 MG TAB PO SCH ×2 (09:20→20:30)
[2021-05-27] MEDS: VITAMIN D 5,000 UNIT CAP PO SCH (09:20)
[2021-05-27] MEDS: DOCUSATE NA/SENNA CONC 1 TAB PO SCH (09:20)
[2021-05-27] MEDS: GABAPENTIN 100 MG CAP PO SCH ×2 (09:20→20:30)
[2021-05-27] MEDS ORDERED: GLUCAGON 1 MG/VIAL IM PRN (11:24)
[2021-05-27] MEDS ORDERED: D50W 25 GM/50 ML SYRINGE IV PRN (11:24)
[2021-05-27] MEDS: INSULIN -REGULAR HUMAN 50 UNIT/0.5 ML ML SQ SCH ×3 (11:30→20:30)
--- NOTE | 2021-05-27 13:56 | EEG ---
CHART: [id number] TEST ID#: [id number] DATE OF STUDY: 05/27/2021 THE EEG WAS RECORDED PORTABLE IN THE PATIENT'S ROOM ON A 17 CHANNEL MACHINE. ELECTRODES WERE APPLIED IN THE USUAL MANNER USING THE INTERNATIONAL 10-20 SYSTEM. THE WAKING BACKGROUND RHYTHM IN THIS RECORD CONSISTS OF POORLY DEVELOPED AND POORLY ORGANIZED WAVES OF 5-6 HZ., [*] WHICH ATTENUATE POORLY WITH EYE OPENING. LOW-VOLTAGE 15-18 HZ ACTIVITY IS DIFFUSELY EXPRESSED. MODERATE VOLTAGE 1.5-3 HZ ACTIVITY IS EXPRESSED INTERMITTENTLY IN THE FRONTAL AND CENTRAL REGIONS. THERE ARE NO FOCAL OR LATERALIZING FEATURES. NO EPILEPTIFORM ACTIVITY APPEARS. SLEEP DID NOT OCCUR. HYPERVENTILATION WAS NOT PERFORMED. PHOTIC STIMULATION PRODUCED NO DRIVING BILATERALLY. IMPRESSION: THIS IS AN ABNORMAL EEG DUE TO THE PRESENCE OF DIFFUSELY EXPRESSED SLOW (DELTA AND THETA) ACTIVITY. THIS IS A NON-SPECIFIC FINDING INDICATING THE PRESENCE OF A MODERATE DIFFUSE DISTURBANCE IN CEREBRAL ACTIVITY.
--- NOTE | 2021-05-27 16:01 | P.PN ---
Subjective Date of Service: 05/27/21 Primary Care Provider: Finn Chief Complaint: Covid positive Subjective: Improving (able to answer yes still not able to fed herself.) Review of Systems is unable to be obtained Physical Examination - Vital Signs Temperature: 97.4 F Blood Pressure: 120/61 Pulse: 41 Respirations: 14 Pulse Ox (%): 98 - Physical Exam General: Alert, In no apparent distress HEENT: Atraumatic, PERRLA, EOMI Neck: Supple, JVD not distended Respiratory: Clear to auscultation bilaterally, Normal air movement Cardiovascular: Regular rate/rhythm, Normal S1 S2 Gastrointestinal: Normal bowel sounds, No tenderness Musculoskeletal: No tenderness Integumentary: No rashes Neurological: Normal speech, Normal tone, Normal affect Lymphatics: No axilla or inguinal lymphadenopathy - Studies Microbiology Data (last 24 hrs): 05/22/21 06:20 Blood - Blood Aerobic Blood Culture - Final No growth in 5 days. 05/22/21 06:20 Blood - Blood Anaerobic Blood Culture - Final No growth in 5 days. 05/22/21 06:24 Blood - Blood Aerobic Blood Culture - Final No growth in 5 days. 05/22/21 06:24 Blood - Blood Anaerobic Blood Culture - Final No growth in 5 days. Assessment & Plan - Problems (Diagnosis) (1) COVID-19 Current Visit: Yes Status: Acute Plan: will consult Dr. Agustin. Continue oxygen. Start the patient on decadron Stable from a covid point view. Possible discharge on decadrone. (2) HTN (hypertension) Current Visit: Yes Status: Acute Plan: Will check the chart for the patients home medications. Adjust as necesary. Qualifiers: Hypertension type: primary hypertension Qualified Code(s): I10 - Essential (primary) hypertension (3) DM2 (diabetes mellitus, type 2) Current Visit: Yes Status: Acute Plan: will put her on a sliding scale for now. Will check a1c q4hrs as the patient should be on high dose steroids. Qualifiers: Diabetes mellitus manager java insulin use: with half-way use Diabetes mellitus complication status: with other specified complication Qualified Code(s): E11.69 - Type 2 diabetes mellitus with other specified complication; Z79.4 - labor training manager (current) use of insulin (4) Hemiplegia Current Visit: Yes Status: Chronic Plan: keep her on falll precautions. (5) Altered mental state Current Visit: Yes Status: Acute Plan: She is not eating at this point may be a development of covid encephalitis. Will order mri. consult to Dr. Pepe. Will have the patient see by yuridia. Will consider discussing with the family for end of life care Qualifiers: Altered mental status type: unspecified Qualified Code(s): R41.82 - Altered mental status, unspecified (6) Encephalitis Current Visit: Yes Status: Acute Plan: Patient has not returned to baseline. Will order an MRI and consult Dr. Pepe. (7) End of life care Current Visit: Yes Status: Acute Plan: Patient is still needing one to one assistance. Unlikely to achieve proper nutrition. Have spoken to the patient son. Have discussed [facility] vs hospice. The patient son discussed with his brother and decided on hospice. We should be to run this out of [facility] Discharge Plan: [facility] Plan to discharge in: 48 Hours - Code Status/Comfort Care Code Status Assessed: No Physician Review: Patient Assessed, Agree with Above Assessment and Plan Critical Care: No Time Spent Managing Pts Care (In Minutes): 30
[2021-05-27] MEDS: ATORVASTATIN 10 MG TAB PO SCH (20:30)
[2021-05-27 22:04] VITALS: O2SAT 94
[2021-05-28] MEDS: INSULIN -REGULAR HUMAN 50 UNIT/0.5 ML ML SQ SCH ×3 (07:30→16:04)
[2021-05-28] MEDS: TRAMADOL HCL 50 MG TAB PO SCH ×2 (08:53→12:51)
[2021-05-28] MEDS: DOCUSATE NA/SENNA CONC 1 TAB PO SCH (08:53)
[2021-05-28] MEDS: GABAPENTIN 100 MG CAP PO SCH (08:54)
[2021-05-28] MEDS: dexAMETHasone 4 MG TAB PO SCH (08:54)
[2021-05-28] MEDS: VITAMIN D 5,000 UNIT CAP PO SCH (08:54)
[2021-05-28] MEDS: ZINC SULFATE 220 MG CAP PO SCH (08:54)
[2021-05-28] MEDS: D5 0.45 NS 1,000 ML IV SCH (08:54)
--- NOTE | 2021-05-28 11:17 | P.DS ---
Admission Date: 05/22/21 Discharge Date: 05/28/21 Primary Care Provider: Finn Disposition: ROUTINE DISCHARGE Discharge Condition: GOOD Reason for Admission: Covid positive - Problems (1) COVID-19 Current Visit: Yes Status: Acute (2) HTN (hypertension) Current Visit: Yes Status: Acute Qualifiers: Hypertension type: primary hypertension Qualified Code(s): I10 - Essential (primary) hypertension (3) DM2 (diabetes mellitus, type 2) Current Visit: Yes Status: Acute Qualifiers: Diabetes mellitus buttermaker insulin use: with detention use Diabetes mellitus complication status: with other specified complication Qualified Code(s): E11.69 - Type 2 diabetes mellitus with other specified complication; Z79.4 - senior care (current) use of insulin (4) Hemiplegia Current Visit: Yes Status: Chronic (5) Altered mental state Current Visit: Yes Status: Acute Qualifiers: Altered mental status type: unspecified Qualified Code(s): R41.82 - Altered mental status, unspecified (6) Encephalitis Current Visit: Yes Status: Acute (7) End of life care Current Visit: Yes Status: Acute Brief History of Present Illness: Patient is an alf patient of [facility]. She has a history of htn, dm2, left sided hemiplegia after a stroke. She had a fall and was hypoxic. Had ordered an x ray. she was getting more hypoxic. [facility] called me this morning and she was sent to the ER. The patient was found to be covid positive. She is not very good at giving a history however that is here baseline. Hospital Course: Patient was admitted for shortness of breath. The patient was stable. However did not get to her baseline mental status. The patient was seen by Dr. Junior. 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 She was needing 1 to 1 assistance with feeds. Poor prognosis. Have spoken at length with her son Neville Chavarria. He agreed to hospice. Hopefully her mentation and feeding will improve. However if she does not improve. Unlikely she will get poor nutrition and continue to decline. Thank you for allowing me to take part in her care. Vital Signs/Physical Exam: Temp Pulse Resp BP Pulse Ox 98.1 F 86 18 141/93 H 95 05/28/21 08:00 05/28/21 08:00 05/28/21 08:00 05/28/21 08:00 05/28/21 08:00 General: In no apparent distress, Demented HEENT: Atraumatic, PERRLA, EOMI Neck: Supple, JVD not distended Respiratory: Clear to auscultation bilaterally, Normal air movement Cardiovascular: Regular rate/rhythm, Normal S1 S2 Gastrointestinal: Normal bowel sounds, No tenderness Musculoskeletal: No tenderness Integumentary: No rashes Neurological: Normal speech, Normal tone, Normal affect Lymphatics: No axilla or inguinal lymphadenopathy Laboratory Data at Discharge: WBC 7.30 K/uL (4.3-10.9) 05/27/21 05:09 Hgb 13.2 g/dL (12.0-15.0) 05/27/21 05:09 Hct 40.8 % (36.0-45.0) 05/27/21 05:09 Plt Count 239 K/uL (152-406) D 05/27/21 05:09 PT 11.7 SECONDS (9.5-12.5) 05/22/21 06:24 INR 1.02 05/22/21 06:24 APTT 35.9 SECONDS (24.3-36.9) 05/22/21 06:24 Sodium 147 mmol/L (136-145) H 05/27/21 05:09 Potassium 4.1 mmol/L (3.5-5.1) 05/27/21 05:09 BUN 42 mg/dL (7-18) H 05/27/21 05:09 Creatinine 0.74 mg/dL (0.55-1.3) 05/27/21 05:09 Glucose 202 mg/dL (74-106) H 05/27/21 05:09 Total Bilirubin 0.3 mg/dL (0.2-1.0) 05/27/21 05:09 AST 18 U/L (15-37) 05/27/21 05:09 ALT 28 U/L (12-78) 05/27/21 05:09 Alkaline Phosphatase 67 U/L (45-117) 05/27/21 05:09 Lipase 34 U/L (73-393) L 05/22/21 06:24 Home Medications: Ipratropium/Albuterol Sulfate [Iprat-Albut 0.5-3(2.5) mg/3 ml] 0.5 - 3 mg Q4HR PRN 08/29/21 Ondansetron HCl [Zofran] 4 mg PO QID PRN 05/23/21 RX: Amlodipine Besylate 10 mg PO DAILY 05/23/21 RX: Aspirin 81 mg PO DAILY 05/23/21 RX: Gabapentin 100 mg PO BID 05/23/21 RX: Loratadine 10 mg PO DAILY 05/23/21 RX: Polyethyl Gly 3350 [Glycolax*] 17 logan PO DAILY 05/23/21 RX: Simvastatin 10 mg PO DAILY 05/23/21 RX: lisinopriL [Lisinopril] 20 mg PO DAILY 05/23/21 Sennosides/Docusate Sodium [Senna-S 8.6-50 mg Tablet] 2 tab PO DAILY 05/23/21 Tramadol HCl [Ultram] 50 mg PO TID 05/23/21 Diet: 1 to 1 ass Activity: Fall precautions Followup: Brennan Briseno MD [Primary Care Provider] - Physician Review: Patient Assessed, Agree with Above Assessment and Plan Time spent managing pt's care (in minutes): 45
[2021-05-28 16:31] VITALS: BP 112/76; TEMP 98
== END 2021-05-28 18:13 | disposition hospice, inpatient (51) | DRG 178 ==
LOC: ER 05:53 → SUPCPDRO 05:53 → ERHOLD 09:42 → 4TH 05-23 13:56 → UNDODISIN 05-23 14:08
PROVIDERS: ADMIT Internal Medicine; ATTEND Internal Medicine
DX: U07.1 COVID-19 (principal); I69.354 Hemiplegia and hemiparesis following cerebral infarction affecting left non-dominant side; G93.40 Encephalopathy, unspecified; N39.0 Urinary tract infection, site not specified; I10 Essential (primary) hypertension; E11.9 Type 2 diabetes mellitus without complications; E86.0 Dehydration; F01.50 Vascular dementia, unspecified severity, without behavioral disturbance, psychotic disturbance, mood disturbance, and anxiety; Z79.4 Long term (current) use of insulin; Z91.013 Allergy to seafood; Z88.0 Allergy status to penicillin
CPT/HCPCS: 36415; 70450; 70544; 70549; 70553; 71045; 80048; 80053; 80076; 81003; 81015; 82728; 82947; 83605; 83690; 84145; 84484; 85025; 85379; 85610; 85730; 86140; 87040; 92610; 93005; 95816; 96374; 96375; 99284; A9577; J2405; J2920; J2930; J3411; J7799; J8540; U0003

== ENCOUNTER 2021-06-02 13:29 | Emergency (ER) | payer OTHER ==
--- OUTSIDE RECORDS SUMMARY | 2021-06-02 13:32 | XMS REPORT | Continuity of Care Document ---
:1945 Author Organization [facility] t Address [address] [place] [address] Care Team Providers Name Role Phone Unavailable Unavailable Unavailable Payers Payer Name Policy Type Policy Number Effective Date Expiration Date S ource Problems This patient has no known problems. Allergies, Adverse Reactions, Alerts Allergy Allergy Status Severity Reaction(s) Onset Inactive Treating Comm ents Source Name Type Date Date Clinician No Known DA Active U [facility] Allergie 01-01 Clear s 00:00: Galindo 00 [facility] Medications This patient has no known medications. [...] FOR AMI: 0.60 - 1. 5 ng/mL [id number] 13:39:00 Test Item Value Reference Range Interpretation Comments TROPONIN-I (test <0.02 NG/ML 0.00-0.06 N REFERENCE R GISELA code = TROPI) TROPONIN I HEA LTHY INDIVIDUALS: < 0.06 ng/mL R/O ISCHE ANATOLY: 0.07 - 0.60 ng/ mL CUT-OFF RANGE F OR AMI: 0.60 - 1.5 ng/m L URINALYSIS [id number] 10:00:00 Test Item Value Reference Range Interpretation [...] = NONE BACU) Specimen comments: Clean CatchURINALYSIS [id number] 10:00:00 Test Item Value Reference Range Interpretation [...] NONE A BACU) Specimen comments: Clean CatchPROTHROMBIN [id number] 09:43:00 Test Item Value Reference Range Interpretation Comments PROTHROMBIN TIME 10.9 SECONDS 9.9-12.8 N PATIENT (test code = PTP) INTERNATIONAL NORMAL 0.9 0.89-1.14 N THE INR IS TO BE USED RATIO (test code = ONLY FOR MONITORING INR) ORAL ANTICOAGULANTTH ERAPY. THE FOLLOWING A RE SUGGESTED RANGE S FROM [facility] LEGE OF CHEST PHYSICIANS:ESTHER CATION INR VALUEPROPHYLAXI S OF VENOUS THROMBOS IS (ORTHOPEDIC MERLE KELLEY) 2.0 - 3.0PROP HYLAXIS OF VENOUS THROM BOSIS (OTHER THAN HIG H-RISK SURGERY) 2.0 - 3.0TRE ATMENT OF DEEP VEIN THROMBOSIS OR PULMONARY EMBOL ISM 2.0 - 3.0PREV ENTION OF SYSTEMIC EMB OLISM TISSUE HEART VA LVES 2.0 - 3.0 AC [place] MYOCARDIAL INFA RCTION (TO PREVENT SYSTEMIC EMBOLI [...] CA) 9.6 mg/dl 8.0-10.5 N Specimen comments: .[id number] 09:32:00 Test Item Value Reference Range Interpretation Comments TROPONIN-I (test <0.02 NG/ML 0.00-0.06 N REFERENCE R GISELA code = TROPI) TROPONIN I HEA LTHY INDIVIDUALS: < 0.06 ng/mL R/O ISCHE ANATOLY: 0.07 - 0.60 ng/ mL CUT-OFF RANGE F OR AMI: 0.60 - 1.5 ng/m L Specimen comments: .CBC W/AUTO [id number] 09:08:00 Test Item Value Reference Range Interpretation [...] K/mm3 0.0-0.2 N - CT C-SPINE W/O [id number] 08:20:00 FAX: Yanni Olmstead MD [phone] [place]: St: REG FAX: Elyssa Retana MD [phone] Name: YANI SPICER [facility] [place] : 1945 Age/S: 73/F [address] [facility] [address] Unit: [id number] Loc: E.EXP [place], [place]: [place] [address] Acct: [id number] Dis Date: Status: REG ER PHONE #: [phone] Exam Date: 08/04/2019 0804 FAX #: [phone] Reason: Neck Pain EXAMS: CPT CODE: [id number] CT C-SPINE W/O CONT 19710 EXAM: CT CERVICAL SPINE WITHOUT CONTRAST LOCATION: C3 HISTORY: Neck Pain TECHNIQUE: Axial tomograms through the cervical spine were obtained without intravenous contrast. Sagittal and coronal reformatted images are provided. This exam was performed according [facility] departmental dose-optimization program, which includes automated exposure [...] PAGE 1 Signed Report- CT HEAD/BRAIN W/O [id number] 08:18:00 FAX: Yanni Olmstead MD [phone] [place]: St: REG FAX: Elyssa Retana MD [phone] Name: YANI SPICER [facility] : 1945 Age/S: 73/F [address] [address] Unit: [id number] Loc: E.EXP [place], [place]: [place] [address] Acct: [id number] Dis Date: Status: REG ER PHONE #: [phone] Exam Date: 08/04/2019 0804 FAX #: [phone] Reason: Headache EXAMS: CPT CODE: [id number] CT HEAD/BRAIN W/O CONT 69438 EXAM: - CT HEAD/BRAIN W/O CONT LOCATION: [...] Signed Report (CONTINUED) FAX: Yanni Olmstead MD [phone] [place]: St: REG FAX: Elyssa Retana MD [phone] Name: YANI SPICER [facility] : 1945ge/S: 73[address] Unit: [id number] Loc: E.EXP [place], [place]: [place] [address] Acct: [id number] Dis Date: Status: REG ER PHONE #: [phone] Exam Date: 08/04/2019 08 FAX #: [phone] Reason:Headache EXAMS: CPT CODE: [id number] CT HEAD/BRAIN W/O CONT 47313 <Continued> at 0818 Reported and signed by: Thien Taylor M.D. CC: Yanni Levy MD; Elyssa Retana MD Technologist: ANGELLA PARRA Trnscrd Dt/Tm: 08/04/2019 (0818) DellHV2 Orig Print D/T: S: 08/04/2019 (0821 PAGE 2 Signed Report- XR CHEST 1 [id number] 08:06:00 FAX: Yanni Olmstead MD [phone] [place]: St: REG FAX: [place] Retana [phone] Name: YANI SPICER [facility] : 1945 Age/S: 73/[address] Unit #: [id number] Loc: E.EXP [place], [place]: [place] [address] Acct: [id number] Dis Date: Status: REG ER PHONE #: [phone] Exam Date: 08/04/2019803 FAX #: [phone] Reason: Chest Pain EXAMS: CPT CODE: [id number] XR CHEST 1 V 02822 EXAM: - XR CHEST 1 V LOCATION: [...] 1 Signed Report FAX: Yanni Olmstead MD [phone] [place]: St: [facility] FAX: Elyssa Retana MD [phone] Name: YANI SPICER [facility] : 1945 Age/S: 73/F [address] [facility] Unit #: [id number] Loc: E.EXP [place], [place]: [place] [address] Acct: [id number] Dis Date: Status: REG ER PHONE #: [phone] Exam Date: 08/04/2019 08 FAX #: [phone] Reason: Chest Pain EXAMS: CPT CODE: [id number] XR CHEST 1 V 26761 <Continued> Orig Print D/T: S: 08/04/2019 (0810) PAGE 2 Signed Report- XR PELVIS 1/2 [id number] 08:05:00 FAX: Yanni Olmstead MD [phone] [place]: St: REG FAX: [place] Retana [phone] Name: YANI SPICER [facility] : 1945 Age/S: 73/F [address] [facility] Unit #: [id number] Loc: E.EXP [place], [place]: [place] [address] Acct: [id number] Dis Date: Status: REG ER PHONE #: [phone] Exam Date: 08/04/2019 0804 FAX #: [phone] Reason: Pelvic Pain EXAMS: CPT CODE: [id number] XR PELVIS 1/2 VIEWS 77225 EXAM: - XR PELVIS 1/2 VIEWS HISTORY: [...] 1 Signed Report FAX: Yanni Olmstead MD [phone] [place]: St: REG FAX: Elyssa Retana MD [phone] Name: YANI SPICER [facility] : 1945 Age/S: 73/F [address] [facility] Unit #: [id number] Loc: E.EXP [place], [place]: [place] [address] Acct: [id number] Dis Date: Status: REG ER PHONE #: [phone] Exam Date: 08/04/2019 0804 FAX #: [phone] Reason: Pelvic Pain EXAMS: CPT CODE: [id number] XR PELVIS 1/2 VIEWS 47903 <Continued> Orig Print D/T: S: 08/04/2019 (0808) PAGE 2 Signed ReportBASI METABOLIC [id number] 10:13:00 Test Item Value Reference Range Interpretation [...] 8.0-10.5 N Specimen comments: .HEPATIC FUNCTION PANEL [id number] 10:13:00 Test Item Value Reference Range Interpretation [...] code = ALKP) Specimen comments: .B-TYPE NATRIURETIC [id number] 10:13:00 Test Item Value Reference Range Interpretation Comments B-TYPE NATRIURETIC PEPTIDE (test 60.0 PG/ML 5-100 N code = BNP) Specimen comments: .[id number] 10:13:00 Test Item Value Reference Range Interpretation Comments TROPONIN-I (test <0.02 NG/ML 0.00-0.06 N REFERENCE R GISELA code = TROPI) TROPONIN I HEA LTHY INDIVIDUALS: < 0.06 ng/mL R/O ISCHE ANATOLY: 0.07 - 0.60 ng/ mL CUT-OFF RANGE F OR AMI: 0.60 - 1.5 ng/m L Specimen comments: .BASIC METABOLIC [id number] 10:03:00 Test Item Value Reference Range Interpretation [...] 8.0-10.5 N Specimen comments: .HEPATIC FUNCTION PANEL [id number] 10:03:00 Test Item Value Reference Range Interpretation [...] code = ALKP) Specimen comments: .B-TYPE NATRIURETIC [id number] 10:03:00 Test Item Value Reference Range Interpretation Comments B-TYPE NATRIURETIC PEPTIDE (test code PG/ML 5-100 = BNP) Specimen comments: .[id number] 10:03:00 Test Item Value Reference Range Interpretation Comments TROPONIN-I (test <0.02 NG/ML 0.00-0.06 N REFERENCE R GISELA code = TROPI) TROPONIN I HEA LTHY INDIVIDUALS: < 0.06 ng/mL R/O ISCHE ANATOLY: 0.07 - 0.60 ng/ mL CUT-OFF RANGE F OR AMI: 0.60 - 1.5 ng/m L Specimen comments: .PROTHROMBIN [id number] 09:54:00 Test Item Value Reference Range Interpretation Comments PROTHROMBIN TIME 12.1 SECONDS 9.9-12.8 N PATIENT (test code = PTP) INTERNATIONAL NORMAL 1.0 0.89-1.14 N THE INR IS TO BE USED RATIO (test code = ONLY FOR MONITORING INR) ORAL ANTICOAGULANTTH ERAPY. THE FOLLOWING A RE SUGGESTED RANGE S FROM [facility] LEGE OF CHEST PHYSICIANS:ESTHER CATION INR VALUEPROPHYLAXI S OF VENOUS THROMBOS IS (ORTHOPEDIC MERLE KELLEY) 2.0 - 3.0PROP HYLAXIS OF VENOUS THROM BOSIS (OTHER THAN HIG H-RISK SURGERY) 2.0 - 3.0TRE ATMENT OF DEEP VEIN THROMBOSIS OR PULMONARY EMBOL ISM 2.0 - 3.0PREV ENTION OF SYSTEMIC EMB OLISM TISSUE HEART VA LVES 2.0 - 3.0 AC [place] MYOCARDIAL INFA RCTION (TO PREVENT SYSTEMIC EMBOLI [...] mg/dl 8.0-10.5 Specimen comments: .HEPATIC FUNCTION PANEL [id number] 09:54:00 Test Item Value Reference Range Interpretation [...] code = ALKP) Specimen comments: .B-TYPE NATRIURETIC [id number] 09:54:00 Test Item Value Reference Range Interpretation Comments B-TYPE NATRIURETIC PEPTIDE (test code PG/ML 5-100 = BNP) Specimen comments: .[id number] 09:54:00 Test Item Value Reference Range Interpretation Comments TROPONIN-I (test code = TROPI) NG/ML 0.00-0.06 Specimen comments: .- XR CHEST 1 [id number] 09:54:00 FAX: Yanni Olmstead MD [phone] [place]: St: [facility] FAX: Yomaira Aleman MD [phone] Name: YANI SPICER [facility] : 1945 Age/S: 73/F [address] [facility] Unit #: [id number] Loc: [place], [place]: [place] [address] Acct: [id number] Dis Date: Status: REG ER PHONE #: [phone] Exam Date: 07/05/2019 0949 FAX #: [phone] Reason: uncontrolled hypertension EXAMS: CPT CODE: [id number] XR CHEST 1 V 32638 Chest Radiograph History: uncontrolled hypertension Comparison: April 01, 2018 Location: R16 A single frontal view of the chest is submitted. Theheart appears unchanged in size. Pulmonary vasculature is unremarkable. The visualized lung luna appear to be free of disease. The bones appear unchanged. IMPRESSION: There is no radiographic evidence of acute cardiopulmonary disease. at 0954 Reported and signed by: Andre Parker M.D. CC: Yanni Monzon ra, MD; Yomaira Aleman MD Technologist: KRYSTEN FISH TrnscrdDate/Time/By: 07/05/2019 (0954) : By: DellPMT PAGE 1 Signed Report FAX: Yanni Olmstead MD [phone] [place]: St: REG FAX: Yomaira Aleman MD [phone] Name: YANI SPICER [facility] : 1945 Age/S: 73/F [address] [facility] Unit #: [id number] Loc: [place] [place], [place]: [place] [address] Acct: [id number] Dis Date: Status: REG ER PHONE #: [phone] Exam Date: 07/05/2019 0949 FAX #:[phone] Reason: uncontrolled hypertension EXAMS: CPT CODE: [id number] XR CHEST 1 V 04279 <Continued> Orig Print D/T: S: 07/05/2019 (7832) PAGE 2 Signed ReportFR[facility] W/AUTO [id number] 09:47:00 Test Item Value Reference Range Interpretation [...]
--- NOTE | 2021-06-02 14:08 | EDPHYS ---
Physician Documentation [facility] Name: Vaishali Chavarria Age: 75 yrs Sex: Female : 1945 Arrival Date: 06/02/2021 Time: 13:31 Bed 4 Private MD: ED Physician Kyra Barroso HPI: 06/02 14:02 This 75 yrs old Female presents to ER via EMS with complaints of Breathing sp3 Difficulty. 14:02 85-year-old female with history of hyperlipidemia, hypertension, CVA, recent COVID-19 sp3 infection and admission on 05/22/2021 who presents to the ED from nursing facility for worsening hypoxia in the low 70s on room air. Patient has a DO NOT RESUSCITATE order in place which I verified with the son by telephone at 1:57 PM today. No other history is available on patient is not verbal or communicating. Remainder of history is limited.. Historical: - Allergies: 13:48 Iodine; ap3 13:48 PENICILLINS; ap3 13:48 Shellfish Containing Products; ap3 - PMHx: 13:48 CVA; DYSPHAGIA; hemiplegia; Hyperlipidemia; Hypertensive disorder; Pneumonia; ap3 polyneuropathy; - Immunization history:: Adult Immunizations up to date. - Social history:: Smoking status: Patient/guardian denies using tobacco, but has a distant history of tobacco abuse. ROS: 14:04 Unable to obtain ROS due to altered mental status. sp3 Exam: 14:04 ENT: Nares patent. No nasal discharge, no septal abnormalities noted. External sp3 auditory canals are clear. Oropharynx with no redness, swelling, or masses, exudates, or evidence of obstruction, uvula midline. Mucous membranes moist. Neck: Trachea midline, no thyromegaly or masses palpated, and no cervical lymphadenopathy. Supple, full range of motion without nuchal rigidity, or vertebral point tenderness. No Meningismus. Chest/axilla: Normal chest wall appearance and motion. Nontender with no deformity. No lesions are appreciated. Abdomen/GI: Soft, non-tender, with normal bowel sounds. No distension or tympany. No guarding or rebound. No evidence of tenderness throughout. 14:04 Constitutional: The patient appears awake, anxious, in obvious distress, severely distressed, obviously ill. 14:04 Respiratory: severe repiratory distress is noted, Respirations: accessory muscle usage, intercostal retractions, Breath sounds: rhonchi, Respiratory rate: >30 14:04 Unable to obtain exam due to altered mental status. 14:51 ECG was reviewed by the Attending Physician. 5 sinus tachycardia at 113 bpm with normal sp3 intervals left axis nonspecific ST/T changes. Vital Signs: 13:43 BP 129 / 95; Pulse 117; Resp 30 S; Temp 100.5(A); Pulse Ox 95% on Non-rebreather mask; jd3 16:09 Pulse 107; Resp 30 S; Temp 99.4(TE); Pulse Ox 98% on Non-rebreather mask; jd3 17:30 BP 117 / 88; Pulse 95; Resp 29 S; Pulse Ox 98% on Non-rebreather mask; jd3 18:52 BP 128 / 95; Pulse 95; Resp 28 S; Pulse Ox 95% on Non-rebreather mask; jd3 MDM: 13:53 Patient medically screened. sp3 14:05 Data reviewed: vital signs, nurses notes, EKG, radiologic studies. ED course: Patient sp3 is in severe respiratory distress secondary to Covid pneumonia. She would require intubation under normal circumstances, however after speaking to her son Aashish we have agreed that we will keep the DO NOT RESUSCITATE and DO NOT INTUBATE order in place and provide other care as required including oxygen, any necessary medications, and IV fluid support. I explained to him that there is a chance that she may on this admission secondary to her respiratory status. He verbally confirmed understanding and stated that he was on his way to the hospital from his place of employment.. 17:45 ED course: Discussed with Dr. Briseno who agrees the [facility]. Patient remained DNR/DNI. We have discussed this with the son as well who has also discussed it with his brother. At this time we will cancel admission and [facility] continued comfort measures.. 06/02 13:47 Order name: Basic Metabolic Panel sp3 06/02 13:47 Order name: CBC with Diff sp3 06/02 13:47 Order name: LFT's sp3 06/02 13:47 Order name: Magnesium sp3 06/02 13:47 Order name: NT PRO-BNP sp3 06/02 13:47 Order name: PT-INR sp3 06/02 13:47 Order name: Troponin (emerg Dept Use Only) sp3 06/02 13:47 Order name: XRAY Chest (1 view) sp3 06/02 13:53 Order name: Ferritin sp3 06/02 13:53 Order name: CRP sp3 06/02 14:41 Order name: Manual Differential EDMS 06/02 17:03 Order name: SARS-COV-2 RT PCR EDMS 06/02 13:47 Order name: Cardiac monitoring; Complete Time: 13:49 sp3 06/02 13:47 Order name: EKG - Nurse/Tech; Complete Time: 13:54 sp3 06/02 13:47 Order name: IV Saline Lock; Complete Time: 13:49 sp3 06/02 13:47 Order name: Labs collected and sent; Complete Time: 13:56 sp3 06/02 13:47 Order name: O2 Per Protocol; Complete Time: 13:49 sp3 06/02 13:47 Order name: O2 Sat Monitoring; Complete Time: 13:49 sp3 Administered Medications: 14:21 Drug: Tylenol Suppository 650 mg Route: MS; jd3 19:34 Follow up: Response: No adverse reaction kc4 Disposition Summary: 06/02/21 17:48 Discharge Ordered Location: Home(06/02/21 17:48) sp3 Condition: Critical(06/02/21 17:48) sp3 Diagnosis - Pneumonia due to SARS-associated coronavirus(06/02/21 17:48) sp3 - Acute respiratory failure sp3 Followup: sp3 - With: Private Physician - When: Today - Reason: Continuance of care Forms: - Medication Reconciliation Form sp3 - Thank You Letter sp3 - Antibiotic Education sp3 - Prescription Opioid Use sp3 Signatures: Dispatcher [employer] Jasen Howard RN RN jd3 Kacey Red RN RN ap3 Kyra Barroso MD MD sp3 Joanna Holden kc4 Corrections: (The following items were deleted from the chart) 16:07 14:24 CORONAVIRUS+ ordered. EDPA EDMS 17:47 14:08 Inpatient Admission sp3 sp3 17:47 14:08 Satnam Navarro sp3 sp3 17:47 14:08 Telemetry/MedSurg (Inpatient) sp3 sp3 17:47 14:08 Critical sp3 sp3 17:47 14:08 an acute exacerbation sp3 sp3 17:47 14:08 have worsened sp3 sp3 17:47 14:08 Standard sp3 sp3 17:47 14:08 sp3 sp3 17:47 14:08 Pneumonia due to SARS-associated coronavirus sp3 sp3 17:47 14:08 Acute respiratory failure with hypoxia sp3 sp3
--- NOTE | 2021-06-02 14:08 | ER ---
Nurse's Notes [facility] Name: Vaishali Chavarria Age: 75 yrs Sex: Female : 1945 Arrival Date: 06/02/2021 Time: 13:31 Bed 4 Private MD: Diagnosis: Pneumonia due to SARS-associated coronavirus;Acute respiratory failure Presentation: 06/02 13:41 Chief complaint: EMS states: they were called to [facility] when they found her O2 to ap3 be 87% on room air. EMS were informed that the patient has not eaten or drank anything since her admission to the facility on 05/29/2021. Upon EMS arrival their assessment showed the patient also to be 87% . EMS personnel placed patient on non-rebreather which brought her to 95%. Coronavirus screen: Client presents with at least one sign or symptom that may indicate coronavirus-19. Standard/surgical mask placed on the client. Provider contacted for isolation considerations. Ebola Screen: No symptoms or risks identified at this time. Initial Sepsis Screen: Does the patient meet any 2 criteria? RR > 20 per min. Temp <36.0*C (96.8*F)) or > 38.3*C (100.9*F). Altered Mental Status. HR > 90 bpm. Yes Does the patient have a suspected source of infection? No. Patient's initial sepsis screen is negative. If YES to both, name of provider notified: Kyra Barroso MD Risk Assessment: Do you want to hurt yourself or someone else? Patient reports no desire to harm self or others. Onset of symptoms. Care prior to arrival: Medication(s) given: NS bolus IV initiated. 22 GA, in the right hand. Transition of care: patient was received from another setting of care (long-term care facility), [facility]. 13:41 Method Of Arrival: EMS: [facility] ap3 13:41 Acuity: KRISHNA 2 ap3 Historical: - Allergies: 13:48 Iodine; ap3 13:48 PENICILLINS; ap3 13:48 Shellfish Containing Products; ap3 - PMHx: 13:48 CVA; DYSPHAGIA; hemiplegia; Hyperlipidemia; Hypertensive disorder; Pneumonia; ap3 polyneuropathy; - Immunization history:: Adult Immunizations up to date. - Social history:: Smoking status: Patient/guardian denies using tobacco, but has a distant history of tobacco abuse. Screenin:46 Abuse screen: Denies threats or abuse. Nutritional screening: it is reported patient ap3 has not eaten or drank anything since her arrival to [facility] on 05/29/21. Tuberculosis screening: No symptoms or risk factors identified. Fall Risk None identified. Sepsis Screening:. Assessment: 14:11 General: Appears distressed, Behavior is listless. Pain: Unable to use pain scale. jd3 Patient is disoriented. Does not appear to understand pain scale. Neuro: Level of Consciousness is awake, confused, lethargic, responsive to painful stimuli. Oriented to none. Cardiovascular: Heart tones present Rhythm is sinus tachycardia. Respiratory: Airway is patent Respiratory effort is labored, shallow, weak, Respiratory pattern is symmetrical, tachypnea Breath sounds are diminished bilaterally. GI: No signs and/or symptoms were reported involving the gastrointestinal system. : No signs and/or symptoms were reported regarding the genitourinary system. EENT: No signs and/or symptoms were reported regarding the EENT system. Derm: Skin is intact, Skin is dry, Skin is pale, Skin temperature is warm. Musculoskeletal: No signs and/or symptoms reported regarding the musculoskeletal system. 15:15 Reassessment: No changes from previously documented assessment. Patient and/or family jd3 updated on plan of care and expected duration. Pain level reassessed. 16:14 Reassessment: No changes from previously documented assessment. Patient and/or family jd3 updated on plan of care and expected duration. Pain level reassessed. pt remains confused and only responding to painful stimuli. 17:30 Reassessment: No changes from previously documented assessment. Patient and/or family jd3 updated on plan of care and expected duration. Pain level reassessed. Neuro: Level of Consciousness is awake, lethargic, responsive to voice. does not respond. pt will look in the direction of the verbal stimuli, but will no make an effort to communicate.. Oriented to none. Respiratory: Airway is patent Respiratory effort is shallow, weak, Respiratory pattern is symmetrical, tachypnea. 17:54 Reassessment: spoke with son and Dr. Briseno, pt is to be discharged back to [facility] on hospice, pt remains DNR. 18:05 Reassessment: called [facility], was transfer for report and no one answered. will jd3 try again. 18:51 Reassessment: No changes from previously documented assessment. Patient and/or family jd3 updated on plan of care and expected duration. Pain level reassessed. report given to Geovanni Narvaez nurse at [facility]. 18:58 Reassessment: [facility] notified of pt's need for transport back to [facility]. jd3 19:44 Reassessment: Patient and/or family updated on plan of care and expected duration. Pain ea level reassessed. Pt non verbal respirations even and unlabored, no s/s of pain or discomfort noted at this time. Discharge instruction given to EMS, pt left ED via stretcher tolerating well. Vital Signs: 13:43 BP 129 / 95; Pulse 117; Resp 30 S; Temp 100.5(A); Pulse Ox 95% on Non-rebreather mask; jd3 16:09 Pulse 107; Resp 30 S; Temp 99.4(TE); Pulse Ox 98% on Non-rebreather mask; jd3 17:30 BP 117 / 88; Pulse 95; Resp 29 S; Pulse Ox 98% on Non-rebreather mask; jd3 18:52 BP 128 / 95; Pulse 95; Resp 28 S; Pulse Ox 95% on Non-rebreather mask; jd3 ED Course: 13:31 Patient arrived in ED. bd 13:34 Kyra Barroso MD is Attending Physician. sp3 13:41 Kacey Red, RN is Primary Nurse. ap3 13:44 Arm band placed on. jd3 13:46 Triage completed. ap3 13:49 Patient has correct armband on for positive identification. Bed in low position. Call ap3 light in reach. Side rails up X2. desk monitor on. Pulse ox on. NIBP on. Door closed. Noise minimized. Warm blanket given. 14:07 Satnam Navarro is Hospitalizing Provider. sp3 14:11 Primary Nurse role handed off by Kacey Red, KYREE jd3 14:11 Jasen Love, KYREE is Primary Nurse. jd3 15:32 XRAY Chest (1 view) In Process Unspecified. EDMS 18:52 No provider procedures requiring assistance completed. jd3 19:45 IV discontinued, intact, bleeding controlled, No redness/swelling at site. Pressure ea dressing applied. Administered Medications: 14:21 Drug: Tylenol Suppository 650 mg Route: MO; jd3 19:34 Follow up: Response: No adverse reaction [id number] Outcome: 14:08 Decision to Hospitalize by Provider. sp3 17:48 Discharge ordered by . sp3 19:45 Discharged to longterm. ea 19:45 Condition: stable 19:45 Discharge instructions given to longterm. 19:45 Patient left the ED. ea Signatures: Dispatcher [employer] EDMS Kalyn Miller Irene, RN Mariah Oneal RN RN Jasen Cabezas RN RN Kacey Childers RN RN [email or web address] Kyra Barroso MD MD sp3 Joanna Holden [email or web address] Corrections: (The following items were deleted from the chart) 14:09 13:43 BP 129 / 95; Pulse 117bpm; Resp 28bpm; Spontaneous; Pulse Ox 95% Non-rebreather jd3 mask; Temp 100.5F Axillary; jd3 16:15 14:11 Neuro: Level of Consciousness is awake, confused, lethargic, Oriented to none jd3 jd3
[2021-06-02 14:16] LABS: Absolute Lymphocytes (CBC) 0.3 K/uL (0.7-4.9); Basophils % 0.1 % (0-1.3); Hematocrit 50.5 % (36.0-45.0); Lymphocytes % 1.1 % (15.3-44.8); MPV 10.8 fL (7.6-11.3); RBC Red Blood Cell Count 5.67 M/uL (3.86-4.86)
[2021-06-02 14:19] LABS: Protime INR 1.32
[2021-06-02] MEDS ORDERED: ACETAMINOPHEN 650MG/RECT SUPP PR ONE (14:39)
[2021-06-02 14:41] LABS: Blood Morphology Comment NOT SEEN (NOT SEEN); Platelet Estimate ADEQ; Platelets, Giant PRESENT
[2021-06-02 14:50] LABS: Albumin 2.6 g/dL (3.4-5.0); Bilirubin Direct 0.4 mg/dL (0-0.2); Bilirubin Total 1.1 mg/dL (0.2-1.0); Ferritin 1511.5 ng/mL (8-388); Magnesium 2.2 mg/dL (1.8-2.4); Potassium 3.3 mmol/L (3.5-5.1); Protein, Total 7.1 g/dL (6.4-8.2)
[2021-06-02 14:57] LABS: Troponin (Emerg Dept Use Only) 15.9 ng/mL (0.0-0.045)
--- NOTE | 2021-06-02 15:39 | RAD REPORT ---
EXAM DESCRIPTION: RAD - Chest Single View - 06/02/2021 3:32 pm CLINICAL HISTORY: COUGH COMPARISON: Chest Single View dated 05/22/2021 FINDINGS: Lines: None. Lungs: Mild increased basilar opacities. Pleural: No significant pleural effusions or pneumothorax. Cardiac: Similar configuration. Bones: No acute fractures. Other: IMPRESSION: Mild increased basilar opacities could reflect atelectasis and/or pneumonia.
[2021-06-02 19:52] VITALS: TEMP 99.4
[2021-06-02 19:55] VITALS: BP 128/95; O2SAT 95
== END 2021-06-02 19:45 | disposition home or self-care (01) ==
LOC: ER 13:29
DX: U07.1 COVID-19 (principal); J12.82 Pneumonia due to coronavirus disease 2019; J96.00 Acute respiratory failure, unspecified whether with hypoxia or hypercapnia; Z88.0 Allergy status to penicillin; Z91.09 Other allergy status, other than to drugs and biological substances; Z91.013 Allergy to seafood; E78.5 Hyperlipidemia, unspecified; I10 Essential (primary) hypertension; G81.90 Hemiplegia, unspecified affecting unspecified side; Z86.73 Personal history of transient ischemic attack (TIA), and cerebral infarction without residual deficits
CPT/HCPCS: 85025; 80048; 36415; 83735; 85610; 80076; 84484; 82728; 83880; 86140; 71045; 99284; U0003